=== PATIENT | female | born 1965 | race Caucasian/White ===

== ENCOUNTER → 2020-02-27 15:04 | Outpatient (CLI) | payer MEDICAID, SELFPAY ==
[2020-02-27 15:14] LABS: Basophils % 0.6 % (0.1-2.0); Eosinophils # 0.1 K/mm3 (0.0-0.4); Eosinophils % 3.7 % (0.1-12.0); Hematocrit 37.6 % (37.0-47.0); Hemoglobin 12.3 g/dL (12.2-16.2); Lymphocytes # 0.9 K/mm3 (0.7-4.5); Lymphocytes % 37.3 % (10-50); Mean Corpuscular HGB Conc 32.8 g/dL (31.8-35.4); Mean Corpuscular Hemoglobin 31.8 pg (27.0-31.2); Mean Corpuscular Volume 96.9 fl (81-99); Mean Platelet Volume 10.9 fl (7.4-10.4); Monocytes # 0.2 K/mm3 (0.1-1.0); Monocytes % 7.1 % (1.7-9.3); Neutrophils # 1.3 K/mm3 (1.8-7.8); Neutrophils % 51.3 % (37.0-80.0); Platelet Count 70 K/mm3 (142-424); Red Blood Count 3.88 M/mm3 (4.20-5.40); Red Cell Distribution Width 14.4 % (11.5-17.5); White Blood Count 2.5 K/mm3 (4.8-10.8)
[2020-02-27 15:16] LABS: Chloride 105 mmol/L (98-107); Sodium 142 mmol/L (136-145)
[2020-02-27 15:19] LABS: Alanine Aminotransferase 21 U/L (12-78); Alkaline Phosphatase 102 U/L (38-126); Aspartate Amino Transferase 38 U/L (14-36); Blood Urea Nitrogen 6 mg/dl (7-17); Carbon Dioxide 26 mmol/L (22.0-30.0); Estimated Glomerular Filt Rate 87 ml/min (>60); GFR (African American) 105 ML/MIN (>60)
[2020-02-27 15:20] LABS: Albumin Level 3.2 g/dl (3.5-5.0); Albumin/Globulin Ratio 0.9 (1.1-1.8); Calcium 9.4 mg/dl (8.4-10.2); Chol/HDL Ratio 4.9 (1-3.5); Cholesterol 133 mg/dl (140-200); Globulin 3.5 g/dL (1.3-3.2); Glucose 102 mg/dl (74-100); HDL Cholesterol 27 mg/dl (40-60); Total Protein,Serum 6.7 g/dl (6.3-8.2); Triglycerides 97 mg/dl (30-150); VLDL Cholesterol 19 mg/dL (0-40)
[2020-02-27 15:31] LABS: Direct LDL Cholesterol 79.52 mg/dL (100-129)
[2020-02-27 15:37] LABS: T4 (Thyroxine) 10.4 ug/dl (5.53-11.0)
[2020-02-27 15:48] LABS: Creatinine,Urine Random 197 mg/dL (Not Estab.)
[2020-02-27 15:52] LABS: Microalbumin/Creatinine Ratio 4.1
[2020-02-27 16:06] LABS: Hemoglobin A1C 5.1 % (4.0-6.0)
== END ==
PROVIDERS: Visit Provider Family Medicine
DX: E11.9 Type 2 diabetes mellitus without complications (principal); Z79.84 Long term (current) use of oral hypoglycemic drugs
CPT/HCPCS: 80053; 80061; 82043; 82570; 83036; 84436; 84443; 85025

== ENCOUNTER → 2020-04-26 14:30 | Outpatient (CLI) | payer MEDICAID, SELFPAY ==
[2020-04-26 14:38] LABS: Basophils % 0.5 % (0.1-2.0); Eosinophils # 0.1 K/mm3 (0.0-0.4); Hematocrit 39.1 % (37.0-47.0); Hemoglobin 12.2 g/dL (12.2-16.2); Lymphocytes % 33.8 % (10-50); Mean Corpuscular HGB Conc 31.2 g/dL (31.8-35.4); Mean Corpuscular Hemoglobin 30.8 pg (27.0-31.2); Mean Corpuscular Volume 98.6 fl (81-99); Mean Platelet Volume 10.4 fl (7.4-10.4); Monocytes # 0.3 K/mm3 (0.1-1.0); Monocytes % 8.9 % (1.7-9.3); Neutrophils # 1.6 K/mm3 (1.8-7.8); Neutrophils % 54.8 % (37.0-80.0); Platelet Count 87 K/mm3 (142-424); Red Blood Count 3.96 M/mm3 (4.20-5.40); Red Cell Distribution Width 14.2 % (11.5-17.5); White Blood Count 2.9 K/mm3 (4.8-10.8)
[2020-04-26 14:54] LABS: Chloride 104 mmol/L (98-107); Potassium 3.7 mmoL/L (3.5-5.1); Sodium 141 mmol/L (136-145)
[2020-04-26 14:57] LABS: Alanine Aminotransferase 20 U/L (12-78); Albumin Level 3.3 g/dl (3.5-5.0); Albumin/Globulin Ratio 0.8 (1.1-1.8); Alkaline Phosphatase 97 U/L (38-126); Anion Gap 16.7 mEq/L (5-15); Aspartate Amino Transferase 38 U/L (14-36); Bilirubin,Total 1.3 mg/dl (0.2-1.3); Blood Urea Nitrogen 8 mg/dl (7-17); Carbon Dioxide 24 mmol/L (22.0-30.0); Estimated Glomerular Filt Rate 74 ml/min (>60); GFR (African American) 90 ML/MIN (>60); Globulin 4.1 g/dL (1.3-3.2); Total Protein,Serum 7.4 g/dl (6.3-8.2)
[2020-04-26 14:58] LABS: Calcium 9.2 mg/dl (8.4-10.2); Glucose 69 mg/dl (74-100)
[2020-04-26 15:16] LABS: Hemoglobin A1C 4.8 % (4.0-6.0)
== END ==
PROVIDERS: Visit Provider Family Medicine
DX: E11.9 Type 2 diabetes mellitus without complications (principal); L08.9 Local infection of the skin and subcutaneous tissue, unspecified
CPT/HCPCS: 80053; 83036; 85025

== ENCOUNTER → 2020-05-27 11:15 | Outpatient (CLI) | payer MEDICAID, SELFPAY ==
--- NOTE | 2020-05-27 | XR_ITS ---
PROCEDURE: XR LUMBAR SPINE MIN 4V CLINICAL INDICATION: MONOCLONAL GAMMOPATHY Low back pain COMPARISON: No exams were available for comparison FINDINGS: Mild lumbar curvature convex left. There is normal alignment. Degenerative disc disease is present at L4-5 and L5-S1. There is generalized vascular calcification. Mild osteoarthritic changes present in the hips. Other findings:None. IMPRESSION: Degenerative disc disease L4-5 Dictated by: Roshan Lewis MD 05/27/2020 13:34 Roshan Lewis MD in [facility] 05/27/2020 13:34
--- NOTE | 2020-05-27 | XR_ITS ---
PROCEDURE: XR PELVIS 1-2V CLINICAL INDICATION: MONOCLONAL GAMMOPATHY Pain COMPARISON: No exams were available for comparison TECHNIQUE: XR Pelvis AP View FINDINGS: Study is limited technically due to patient's body habitus. No gross acute bony or joint abnormalities are evident. There is some decrease in the hip joint space superiorly on both sides which may be related to mild osteoarthritis. IMPRESSION: Limited exam. Slight decrease in the hip joint spaces suggesting mild osteoarthritis Dictated by: Roshan Lewis MD 05/27/2020 13:36 Roshan Lewis MD in [facility] 05/27/2020 13:36
[2020-05-27 12:47] LABS: Basophils % 0.7 % (0.1-2.0); Eosinophils # 0.1 K/mm3 (0.0-0.4); Eosinophils % 2.1 % (0.1-12.0); Hematocrit 41.4 % (37.0-47.0); Lymphocytes # 1.4 K/mm3 (0.7-4.5); Lymphocytes % 29.6 % (10-50); Mean Corpuscular HGB Conc 31.3 g/dL (31.8-35.4); Mean Corpuscular Hemoglobin 30.8 pg (27.0-31.2); Mean Corpuscular Volume 98.5 fl (81-99); Mean Platelet Volume 9.6 fl (7.4-10.4); Monocytes # 0.4 K/mm3 (0.1-1.0); Monocytes % 7.5 % (1.7-9.3); Neutrophils # 2.9 K/mm3 (1.8-7.8); Neutrophils % 60.3 % (37.0-80.0); Platelet Count 117 K/mm3 (142-424); Red Cell Distribution Width 13.9 % (11.5-17.5); White Blood Count 4.7 K/mm3 (4.8-10.8)
[2020-05-27 14:10] LABS: Chloride 106 mmol/L (98-107); Potassium 4.7 mmoL/L (3.5-5.1); Sodium 139 mmol/L (136-145)
[2020-05-27 14:13] LABS: Alanine Aminotransferase 26 U/L (12-78); Alkaline Phosphatase 111 U/L (38-126); Anion Gap 17.7 mEq/L (5-15); Aspartate Amino Transferase 44 U/L (14-36); Bilirubin,Total 1.2 mg/dl (0.2-1.3); Blood Urea Nitrogen 14 mg/dl (7-17); Calcium 9.5 mg/dl (8.4-10.2); Carbon Dioxide 20 mmol/L (22.0-30.0); Estimated Glomerular Filt Rate 52 ml/min (>60); GFR (African American) 62 ML/MIN (>60); Glucose 78 mg/dl (74-100); Iron 55 ug/dL (37-170)
[2020-05-27 14:14] LABS: Albumin Level 3.7 g/dl (3.5-5.0); Albumin/Globulin Ratio 0.8 (1.1-1.8); Globulin 4.8 g/dL (1.3-3.2); Total Protein,Serum 8.5 g/dl (6.3-8.2)
[2020-05-27 14:23] LABS: Total Iron Binding Capacity 289 ug/dL (265-497)
[2020-05-27 14:49] LABS: Ferritin 96.4 ng/ml (11.1-264)
[2020-05-29 21:41] LABS: Free Kappa Lt Chains 131.2 mg/L (3.3-19.4); Free Lambda Lt Chains 73.2 mg/L (5.7-26.3)
[2020-05-31 14:48] LABS: Immunoglobulin A, Qn 710 mg/dL (87-352); Immunoglobulin G, Qn 2429 mg/dL (586-1602)
[2020-05-31 14:59] LABS: Immunoglobulin M, Qn 142 mg/dL (26-217)
[2020-05-31 18:04] LABS: Alpha-1-Globulin 0.3 g/dL (0.0-0.4); Alpha-2-Globulin 0.8 g/dL (0.4-1.0); Gamma Globulin 2.5 g/dL (0.4-1.8); Protein, Total 7.7 g/dL (6.0-8.5)
== END ==
PROVIDERS: PCP Family Medicine; Visit Provider Internal Medicine Medical Oncology
DX: D47.2 Monoclonal gammopathy (principal); D69.6 Thrombocytopenia, unspecified; M54.5 Low back pain
CPT/HCPCS: 36415; 72110; 72170; 80053; 82728; 82784; 83540; 83550; 83883; 84155; 84165; 85025; 86334

== ENCOUNTER 2020-06-22 08:40 | Outpatient (CLI) | payer MEDICAID, SELFPAY ==
--- NOTE | 2020-06-22 08:40 | US_ITS ---
PROCEDURE: US LIVER CLINICAL INDICATION: cirrhosis COMPARISON: No exams were available for comparison FINDINGS: There is diffuse ascites. The liver is small and shrunken with irregular borders. Portal vein is 12 mm common bile duct is 3 mm. There is appropriate direction of blood flow within the portal vein. There is diffuse abdominal ascites. IMPRESSION: Small cirrhotic appearing liver with diffuse ascites Dictated by: Roshan Lewis MD 06/22/2020 21:57 Roshan Lewis MD in [facility] 06/22/2020 21:57
--- NOTE | 2020-06-22 08:40 | US_ITS ---
PROCEDURE: US PARACENTESIS CLINICAL INDICATION: Abdominal distension COMPARISON: No exams were available for comparison TECHNIQUE: Informed consent was obtain prior to procedure. After appropriate Time out, under aseptic conditions and local anesthesia with 1% buffered lidocaine using sonographic guidance a 6 Barbadian Aszv-V-Jyfcurno catheter was inserted into the largest pocket of fluid localized in the right lower quadrant. Approximately 56580 mL of serous fluid was drained. The patient tolerated the procedure well and left the radiology suite in stable condition. The patient went to infusion for albumin infusion following the paracentesis. FINDINGS: Diffuse ascites IMPRESSION: Successful sonographic guided paracentesis without complication. Dictated by: Roshan Lewis MD 06/22/2020 22:00 Roshan Lewis MD in [facility] 06/22/2020 22:00
[2020-06-22 11:38] VITALS: BMI 36.7
[2020-06-22 12:05] LABS: Creatinine Clearance Estimated 81 mL/min (50-200); Estimated Glomerular Filt Rate 47 ml/min (>60); GFR (African American) 56 ML/MIN (>60)
[2020-06-22 12:40] VITALS: BP 124/66; PULSE 90; RESP 18; O2SAT 95
[2020-06-22 14:25] VITALS: BP 132/76; PULSE 100; RESP 18
[2020-06-22 16:35] VITALS: BP 127/68; PULSE 93; RESP 18
== END 2020-06-22 16:35 | disposition home or self-care (01) ==
LOC: RAD 08:40 → INF 11:36
PROVIDERS: PCP Family Medicine; Visit Provider Family Medicine
DX: R18.8 Other ascites (principal); K74.60 Unspecified cirrhosis of liver
CPT/HCPCS: 49083; 76705; 82565; 96365; 96366; J2405; P9047

== ENCOUNTER → 2020-07-07 13:51 | Outpatient (CLI) | payer MEDICAID, SELFPAY ==
--- NOTE | 2020-07-07 13:51 | CT_ITS ---
PROCEDURE: CT ABDOMEN PELVIS WO CON CLINICAL INDICATION: ascites, liver mass COMPARISON: Paracentesis 06/22/2020 at which time 32522 mL of ascitic fluid was removed TECHNIQUE: Axial images obtained with sagittal and coronal reformats. All CT scans at the facility use one or more dose reduction, viz: automated exposure control, ma/kV adjustment per patient size (including targeted exams where dose is matched to indication, i.e. head), or iterative reconstruction technique. FINDINGS: Lower thorax: The lower lung francois are clear and there is no pleural fluid. Cardiac size is normal. ABDOMEN: Liver: Overall liver somewhat small mild nodularity of capsule Gallbladder: Post cholecystectomy Pancreas: No masses or peripancreatic fluid collections. Spleen: unremarkable Adrenals: unremarkable Kidneys/ureters: The kidneys are normal in size and no calculi and there is no obstructive. ABDOMEN & PELVIS: Stomach bowel: There is a small hiatal hernia. The stomach and duodenal sweep normal. The small bowel is normal in caliber and the loops of bowel are seen floating in the massive amount of abdominal ascites. There obviously has been marked reaccumulation of the ascitic fluid since the previous paracentesis. There is diffuse increased attenuation of the subcutaneous tissues of the abdominal wall consistent with generalized anasarca. Peritoneum: Massive abdominal ascites. No free air. Lymph nodes: No enlarged lymph nodes apparent. Vasculature: There is diffuse arthrosclerotic calcification of the abdominal aorta but there is no aneurysm. Bones: No acute fracture PELVIS: Reproductive: Post hysterectomy Bladder: The bladder is decompressed, there is no significant ascitic fluid in the lower pelvis or cul-de-sac Appendix: There are no findings to suggest appendicitis but the massive amount of ascitic fluid somewhat obscures adequate evaluation of the cecum and pericecal area. IMPRESSION: Massive amount of abdominal ascites with generalized anasarca of the abdominal wall, somewhat small and cirrhotic appearing liver, other findings as described Dictated by: Dr. Raman Huerta MD 07/07/2020 14:22 Dr. Raman Huerta MD in [facility] 07/07/2020 14:22
== END ==
PROVIDERS: PCP Family Medicine; Visit Provider Family Medicine
DX: R16.0 Hepatomegaly, not elsewhere classified (principal); R18.8 Other ascites
CPT/HCPCS: 74176

== ENCOUNTER 2020-07-14 08:58 | Outpatient (CLI) | payer MEDICAID, SELFPAY ==
[2020-07-14] VITALS (9 sets, daily range): BP systolic 105–143; BP diastolic 58–78; PULSE 78–98; RESP 18; O2SAT 94–99; BMI 35.2
--- NOTE | 2020-07-14 08:58 | US_ITS ---
PROCEDURE: US PARACENTESIS CLINICAL INDICATION: Ascites, abdominal distension COMPARISON: No exams were available for comparison TECHNIQUE: Informed consent was obtain prior to procedure. After appropriate Time out, under aseptic conditions and local anesthesia with 1% buffered lidocaine using sonographic guidance a 6 Chilean Sqch-F-Ptcgykcv catheter was inserted into the largest pocket of fluid localized in the right lower quadrant. 13,300 cc serous fluid was drained. The patient tolerated the procedure well and left the radiology suite in stable condition. FINDINGS: Diffuse ascites IMPRESSION: Successful sonographic guided paracentesis without complication. Dictated by: Roshan Lewis MD 07/15/2020 13:09 Roshan Lewis MD in [facility] 07/15/2020 13:09
[2020-07-14 10:11] LABS: Creatinine Clearance Estimated 64 mL/min (50-200); Estimated Glomerular Filt Rate 36 ml/min (>60); GFR (African American) 43 ML/MIN (>60)
== END 2020-07-14 16:35 | disposition home or self-care (01) ==
LOC: RAD 08:58 → INF 10:31
PROVIDERS: PCP Family Medicine; Visit Provider Family Medicine
DX: R18.8 Other ascites (principal)
CPT/HCPCS: 49083; 82565; 96365; 96366; 96375; J2405; P9047

== ENCOUNTER → 2020-07-22 14:12 | Outpatient (CLI) | payer MEDICAID, SELFPAY ==
[2020-07-22 14:19] LABS: Basophils % 0.6 % (0.1-2.0); Eosinophils # 0.1 K/mm3 (0.0-0.4); Eosinophils % 2.6 % (0.1-12.0); Hematocrit 38.7 % (37.0-47.0); Hemoglobin 12.1 g/dL (12.2-16.2); Lymphocytes # 1.6 K/mm3 (0.7-4.5); Lymphocytes % 32.2 % (10-50); Mean Corpuscular HGB Conc 31.2 g/dL (31.8-35.4); Mean Corpuscular Hemoglobin 30.9 pg (27.0-31.2); Mean Platelet Volume 10.2 fl (7.4-10.4); Monocytes # 0.5 K/mm3 (0.1-1.0); Monocytes % 9.9 % (1.7-9.3); Neutrophils # 2.7 K/mm3 (1.8-7.8); Neutrophils % 54.8 % (37.0-80.0); Platelet Count 125 K/mm3 (142-424); Red Blood Count 3.91 M/mm3 (4.20-5.40); Red Cell Distribution Width 14.5 % (11.5-17.5)
[2020-07-22 14:48] LABS: Chloride 109 mmol/L (98-107); Potassium 5.6 mmoL/L (3.5-5.1); Sodium 136 mmol/L (136-145)
[2020-07-22 14:51] LABS: Alanine Aminotransferase 23 U/L (12-78); Albumin Level 2.9 g/dl (3.5-5.0); Albumin/Globulin Ratio 0.7 (1.1-1.8); Alkaline Phosphatase 112 U/L (38-126); Anion Gap 11.6 mEq/L (5-15); Aspartate Amino Transferase 43 U/L (14-36); Bilirubin,Total 1.4 mg/dl (0.2-1.3); Blood Urea Nitrogen 28 mg/dl (7-17); Calcium 9.1 mg/dl (8.4-10.2); Carbon Dioxide 21 mmol/L (22.0-30.0); Estimated Glomerular Filt Rate 33 ml/min (>60); GFR (African American) 40 ML/MIN (>60); Globulin 4.4 g/dL (1.3-3.2); Glucose 84 mg/dl (74-100); HDL Cholesterol 24 mg/dl (40-60); Lipase 107 U/L (23-300); Total Protein,Serum 7.3 g/dl (6.3-8.2)
[2020-07-22 14:52] LABS: Chol/HDL Ratio 4.8 (1-3.5); Cholesterol 115 mg/dl (140-200); Triglycerides 105 mg/dl (30-150); VLDL Cholesterol 21 mg/dL (0-40)
[2020-07-22 15:03] LABS: Direct LDL Cholesterol 59.32 mg/dL (100-129)
[2020-07-22 15:21] LABS: Thyroid Stimulating Hormone 4.21 uIU/mL (0.465-4.68)
== END ==
PROVIDERS: PCP Family Medicine; Visit Provider Family Medicine
DX: K74.60 Unspecified cirrhosis of liver (principal); Z79.899 Other long term (current) drug therapy
CPT/HCPCS: 80053; 80061; 83690; 84443; 85025

== ENCOUNTER → 2020-08-06 17:36 | Outpatient (CLI) | payer MEDICAID, SELFPAY ==
[2020-08-06 18:09] LABS: Alanine Aminotransferase 24 U/L (12-78); Albumin Level 2.7 g/dl (3.5-5.0); Albumin/Globulin Ratio 0.6 (1.1-1.8); Alkaline Phosphatase 145 U/L (38-126); Anion Gap 12.5 mEq/L (5-15); Aspartate Amino Transferase 40 U/L (14-36); Bilirubin,Total 1.1 mg/dl (0.2-1.3); Blood Urea Nitrogen 24 mg/dl (7-17); Carbon Dioxide 21 mmol/L (22.0-30.0); Chloride 112 mmol/L (98-107); Estimated Glomerular Filt Rate 31 ml/min (>60); GFR (African American) 38 ML/MIN (>60); Globulin 4.4 g/dL (1.3-3.2); Glucose 104 mg/dl (74-100); Potassium 5.5 mmoL/L (3.5-5.1); Sodium 140 mmol/L (136-145); Total Protein,Serum 7.1 g/dl (6.3-8.2)
[2020-08-06 18:10] LABS: Basophils % 0.3 % (0.1-2.0); Eosinophils # 0.1 K/mm3 (0.0-0.4); Eosinophils % 1.5 % (0.1-12.0); Hematocrit 33.9 % (37.0-47.0); Hemoglobin 10.8 g/dL (12.2-16.2); Lymphocytes # 1.3 K/mm3 (0.7-4.5); Lymphocytes % 28.2 % (10-50); Mean Corpuscular HGB Conc 31.9 g/dL (31.8-35.4); Mean Corpuscular Hemoglobin 31.5 pg (27.0-31.2); Mean Corpuscular Volume 98.8 fl (81-99); Mean Platelet Volume 10.1 fl (7.4-10.4); Monocytes # 0.4 K/mm3 (0.1-1.0); Monocytes % 9.4 % (1.7-9.3); Neutrophils # 2.7 K/mm3 (1.8-7.8); Neutrophils % 60.6 % (37.0-80.0); Platelet Count 120 K/mm3 (142-424); Red Blood Count 3.43 M/mm3 (4.20-5.40); Red Cell Distribution Width 14.8 % (11.5-17.5); White Blood Count 4.5 K/mm3 (4.8-10.8)
== END ==
PROVIDERS: Visit Provider Family Medicine
DX: R18.8 Other ascites (principal)
CPT/HCPCS: 80053; 85025

== ENCOUNTER 2020-08-13 13:09 | Observation (INO) | payer MEDICAID, SELFPAY ==
[2020-08-13] VITALS (7 sets, daily range): BP systolic 95–123; BP diastolic 54–77; PULSE 78–109; RESP 17–20; TEMP 36.9; O2SAT 95–99; BMI 34.3
--- NOTE | 2020-08-13 14:12 | HMH.EDGENADL ---
ED Disposition Clinical Impression: Ascites Qualifiers: Ascites type: other type Qualified Code(s): R18.8 - Other ascites Cirrhosis Qualifiers: Hepatic cirrhosis type: other cirrhosis Qualified Code(s): K74.69 - Other cirrhosis of liver Disposition: Admitted As Inpatient Condition on Discharge: Fair Referrals: Orlin Collado MD [Primary Care Provider] - - Critical Care Critical Care Time: No Attestation: On 08/13/20, the high probability of a clinically significant, sudden or life threatening deterioration of the following system(s) required my full and direct attention, intervention and personal management. The time I documented below is in addition to time spent performing reported procedures but includes the following listed in this critical care notation. Medical Decision Making - Medical Records Medical records reviewed: Yes: I reviewed the patient's medical records. - Jovany Inquiry Pt receiving controlled substance: No Vital Signs: 08/13/20 13:10 08/13/20 13:40 Temperature 98.4 F Temperature Source Oral Pulse Rate [Left Radial] 102 H 102 H Respiratory Rate 18 18 Blood Pressure [Right Arm] 114/77 123/65 Blood Pressure Mean [Right Arm] 89 84 Blood Pressure Source [Right Arm] Automatic Cuff Automatic Cuff Blood Pressure Position [Right Arm] Supine Supine 02 Sat by Pulse Oximetry 98 98 Oxygen Delivery Method Room Air Room Air - Lab Data Lab Results 08/13/20 13:45: WBC 4.5 L, RBC 3.18 L, Hgb 9.8 L, Hct 31.6 L, MCV 99.4 H, MCH 30.8, MCHC 31.0 L, RDW 14.3, Plt Count 126 L, MPV 9.5, Neut % (Auto) 57.1, Lymph % (Auto) 31.5, Cooke % (Auto) 9.4 H, Eos % (Auto) 1.5, Baso % (Auto) 0.5, Neut # (Auto) 2.6, Lymph # (Auto) 1.4, [place]oke # (Auto) 0.4, Eos # (Auto) 0.1, Baso # (Auto) 0.0 08/13/20 13:45: Sodium 140, Potassium 5.5 H, Chloride 115 H, Carbon Dioxide 18 L, Anion Gap 12.5, BUN 27 H, Creatinine 1.90 H, Estimated Creat Clear 47, Estimated GFR 27 L, Est GFR ( Amer) 33 L, Glucose 100, Calcium 9.3, Total Bilirubin 0.7, AST 44 H, ALT 28, Alkaline Phosphatase 178 H, Total Protein 8.0, Albumin 3.0 L, Globulin 5.0 H, Albumin/Globulin Ratio 0.6 L, Lipase 114 08/13/20 13:45: PT 12.8 H, INR 1.26 H, APTT 26.6 08/13/20 13:45: Ammonia 75 H 08/13/20 13:45: Lactate 2.9 H Result diagrams: 08/13/20 13:45 08/13/20 13:45 Orders (Tests/Meds): ED MEDICATIONS Generic Name Dose Route Start Last Admin Trade Name Freq PRN Reason Stop Dose Admin Albumin Human 25 gm 08/13/20 17:30 Albumin 25% (12.5 Gm) Soln 50ml Bottle IV 08/21/20 17:31 ONCE SASKIA Discontinued Medications Generic Name Dose Route Start Last Admin Trade Name Freq PRN Reason Stop Dose Admin Bacitracin 1 each 08/13/20 16:35 08/13/20 16:37 Bacitracin Oint 0.9gm Udp TP 08/13/20 16:36 1 each ONCE ONE Administration Morphine Sulfate 4 mg 08/13/20 15:27 08/13/20 15:44 Morphine 4mg/Ml Syringe IV 08/13/20 15:28 4 mg ONCE ONE Administration Promethazine HCl 25 mg 08/13/20 14:44 08/13/20 15:44 Promethazine Hcl 25mg/Ml 1ml Vial IV 08/13/20 14:45 25 mg ONCE ONE Administration Sodium Bicarbonate 1.92 meq 08/13/20 16:35 08/13/20 16:37 Sodium Bicarbonate (Neut) 4% 5ml Vial IV 08/13/20 16:36 1.92 meq ONCE ONE Administration Sodium Chloride 25 ml 08/13/20 14:44 08/13/20 15:44 Sodium Chloride 0.9% 25ml Bag IV 08/13/20 14:45 25 ml ONCE ONE Administration ORDERS Category Date Time Status Blood Culture Stat Micro 08/13/20 13:45 Received US Paracentesis Stat Ultrasound 08/13/20 14:27 Taken - Reevaluation(s) Time: 17:51 Reevaluation #1: On reevaluation, the patient is feeling much better. The patient did receive paracentesis today. A total of 14 L were removed from the abdomen. Patient will require prolonged albumin infusion. Patient requires admission for further evaluation and treatment. Medical Decision Narrative: 55-year-old female presented to the emergency depar
[2020-08-13 14:14] LABS: Alanine Aminotransferase 28 U/L (12-78); Albumin/Globulin Ratio 0.6 (1.1-1.8); Alkaline Phosphatase 178 U/L (38-126); Anion Gap 12.5 mEq/L (5-15); Aspartate Amino Transferase 44 U/L (14-36); Bilirubin,Total 0.7 mg/dl (0.2-1.3); Blood Urea Nitrogen 27 mg/dl (7-17); Calcium 9.3 mg/dl (8.4-10.2); Carbon Dioxide 18 mmol/L (22.0-30.0); Chloride 115 mmol/L (98-107); Creatinine Clearance Estimated 47 mL/min (50-200); Estimated Glomerular Filt Rate 27 ml/min (>60); GFR (African American) 33 ML/MIN (>60); Glucose 100 mg/dl (74-100); Lipase 114 U/L (23-300); Potassium 5.5 mmoL/L (3.5-5.1); Sodium 140 mmol/L (136-145)
[2020-08-13 14:15] LABS: Basophils % 0.5 % (0.1-2.0); Eosinophils # 0.1 K/mm3 (0.0-0.4); Eosinophils % 1.5 % (0.1-12.0); Hematocrit 31.6 % (37.0-47.0); Hemoglobin 9.8 g/dL (12.2-16.2); Lymphocytes # 1.4 K/mm3 (0.7-4.5); Lymphocytes % 31.5 % (10-50); Mean Corpuscular Hemoglobin 30.8 pg (27.0-31.2); Mean Corpuscular Volume 99.4 fl (81-99); Mean Platelet Volume 9.5 fl (7.4-10.4); Monocytes # 0.4 K/mm3 (0.1-1.0); Monocytes % 9.4 % (1.7-9.3); Neutrophils # 2.6 K/mm3 (1.8-7.8); Neutrophils % 57.1 % (37.0-80.0); Platelet Count 126 K/mm3 (142-424); Red Blood Count 3.18 M/mm3 (4.20-5.40); Red Cell Distribution Width 14.3 % (11.5-17.5); White Blood Count 4.5 K/mm3 (4.8-10.8)
[2020-08-13 14:19] LABS: Ammonia 75 umol/L (9-30)
[2020-08-13 14:20] LABS: Activated Partial Thrombo Time 26.6 seconds (23.6-34.0); INR 1.26 (0.9-1.1); Prothrombin Time 12.8 seconds (9.4-11.8)
--- NOTE | 2020-08-13 14:27 | US_ITS ---
PROCEDURE: US PARACENTESIS CLINICAL INDICATION: SWELLING Diffuse abdominal ascites with abdominal distension pain and shortness of breath COMPARISON: No exams were available for comparison TECHNIQUE: Informed consent was obtain prior to procedure. After appropriate Time out, under aseptic conditions and local anesthesia with 1% buffered lidocaine using sonographic guidance a 6 Bermudian Inns-Z-Scfxfqbv catheter was inserted into the largest pocket of fluid localized in the right lower quadrant. Approximately 30128 mL of serous us fluid was drained. The patient tolerated the procedure well and left the radiology suite in stable condition. FINDINGS: Diffuse 4 quadrant ascites IMPRESSION: Successful sonographic guided paracentesis without complication. Dictated by: Roshan Lewis MD 08/16/2020 09:37 Roshan Lewis MD in [place] 08/16/2020 09:37
[2020-08-13 14:39] LABS: Lactic Acid 2.9 mmol/L (0.7-2.1)
--- NOTE | 2020-08-13 14:50 | PC.NURSE ---
PT GONE FOR PROCEDURE
--- NOTE | 2020-08-13 15:44 | PC.NURSE ---
MEDS TOOK TO RADIOLOGY FOR PT
--- NOTE | 2020-08-13 17:35 | PC.NURSE ---
Verified albumin order with Vasyl in pharmacy.
--- NOTE | 2020-08-13 17:48 | PC.NURSE ---
speaking with Dr Ruvalcaba.
[2020-08-13 18:19] LABS: Reflex Lactic Add Lactic Reflex
--- NOTE | 2020-08-13 19:15 | PC.NURSE ---
pt arrived to floor via stretcher to floor from the ED
[2020-08-13 19:25] LABS: Lactic Acid Follow Up (RFLX 1) 3.2 mmol/L (0.7-2.1)
--- NOTE | 2020-08-13 19:51 | HMH.HPDC ---
General - General Admission date:: 08/13/20 Discharge date: 08/13/20 *Admission Date: 08/13/20 *Chief complaint: ascites and cirrhosis *History of present illness: Patient is a 55-year-old white female, followed by me in the office, presented to the hospital today for abdominal paracentesis. This is her third visit to this hospital for paracentesis, large volumes were previously taken off, 14 L was taken off today. Patient feels much improved, she needs an albumin infusion following the paracentesis, wishes to go home after the albumin infusion is completed. Patient carries a diagnosis of cirrhosis, imaging via ultrasound showed a small cirrhotic liver. CT imaging previously has shown significant ascites and anasarca. The ascites component has been progressive over the last few months, and she has an appointment to see gastroenterology at . Patient also carries a diagnosis of monoclonal gammopathy of unknown significance MGUS. She has a longstanding history of pancytopenia. She was followed by an oncologist in [facility], recently seen locally by Dr. Gilmore. Patient has been getting progressively weaker at home, has sustained a few falls. She is increasingly frail, there is disuse atrophy of skeletal muscle. Patient has chronic back pain, longstanding anxiety. Imaging of the lumbar spine did not demonstrate any suggestion of multiple myeloma. Evolution of the monoclonal gammopathy to myeloma has been a clinical concern. Patient states she feels much improved following the paracentesis. She has been drinking sips of fluids, not much of an appetite. She would like to go home following albumin infusion. [facility] History Medical History: Reports:: Anxiety, Cancer, Depression, Diabetes Mellitus Type 2, Gastroesophageal Reflux Disease(GERD), Hyperlipidemia, Hypertension *Have you ever received a pneumonia vaccine?: No *Have you received a flu vaccine this season?: No Other Medical History: Reports: Chemotherapy, Liver Disease, Thyroid Disease Other Surgeries: Yes: Cancer Surgery, Colonoscopy, Thyroidectomy - *Social History Smoking Status: Current every day smoker Tobacco Type: cigarettes # Packs/Day (cigarettes): 1 Alcohol Intake: never Substance Use Type: denies use *Occupational Status:: disabled Housing: house Household Members: spouse, family, children *Travel in the last 8 weeks: None - Psychiatric History Expresses thoughts of harming self/others: None Pschychiatric History:: Reports:: Anxiety, Depression Family Hx:: Non-contributory Review of Systems - Constitutional Reports anorexia, Reports lack of energy, Reports malaise, Reports weakness - Eyes Denies change in vision - ENT Denies abnormal hearing, Denies bleeding gums, Denies nosebleed - *Cardiovascular Reports leg pain with activity, Reports generalized swelling, Reports leg swelling, Reports foot swelling, Denies chest pain, Denies chest pain at rest, Denies chest pain with activity - *Respiratory Denies chest congestion - *Gastrointestinal Reports abdominal pain, Reports feeling full early, Denies coffee ground vomit, Denies difficulty swallowing, Denies black, tarry stools - *Genitourinary Denies difficulty urinating - *Musculoskeletal Reports abnormal walking, Reports muscle weakness, Reports body aches, Reports stiffness - Integumentary/Breasts Denies yellowing of the skin - *Neurologic Reports weakness, Denies confusion, Denies localized weakness, Denies headache(s) - Psychiatric Reports lack of enjoyment, Reports anxiety - Endocrine Reports cold intolerance - Hematologic/Lymphatic Reports easy bruising - Allergic/Immunologic Denies wheezing Exam Vital signs and Labs for Last 24 Hours: Temp Pulse Resp BP Pulse Ox 98.4 F 95 H 20 97/56 L 98 08/13/20 19:13 08/13/20 19:13 08/13/20 19:13 08/13/20 19:13 08/13/20 18:21 Laboratory Results - last 24 hr 08/13/20 13:45: WBC 4.5 L, RBC 3.18 L, Hgb 9.8 L, Hct
[2020-08-13 21:01] LABS: Reflex Lactic (2 hrs) Add Lactic Reflex
[2020-08-13 22:03] LABS: Lactic Acid Follow up (RFLX 2) 4.4 mmol/L (0.7-2.1)
--- NOTE | 2020-08-13 22:13 | PC.NURSE ---
Critical Lactic reported to MD Ruvalcaba. OK to still DC when albumen is finished infusing.
== END 2020-08-14 00:10 | disposition home or self-care (01) ==
LOC: ER 17:53 → 2ND 19:21
PROVIDERS: Admitting Provider Family Medicine; Emergency Provider Emergency Medicine; PCP Emergency Medicine; Visit Provider Family Medicine
DX: K74.60 Unspecified cirrhosis of liver (principal); E11.9 Type 2 diabetes mellitus without complications; I10 Essential (primary) hypertension; D47.2 Monoclonal gammopathy; R29.6 Repeated falls; Z88.0 Allergy status to penicillin; Z88.5 Allergy status to narcotic agent; Z79.4 Long term (current) use of insulin; Z79.51 Long term (current) use of inhaled steroids; Z72.0 Tobacco use; Z88.2 Allergy status to sulfonamides; Z88.8 Allergy status to other drugs, medicaments and biological substances; Z79.899 Other long term (current) drug therapy; R18.8 Other ascites
CPT/HCPCS: 36415; 49083; 80053; 82140; 83605; 83690; 85025; 85610; 85730; 87040; 96365; 96366; 96375; 99285; G0378; P9047; U0003

== ENCOUNTER → 2020-08-19 13:29 | Outpatient (CLI) | payer MEDICAID, SELFPAY ==
[2020-08-19 13:52] LABS: Chloride 116 mmol/L (98-107)
[2020-08-19 13:53] LABS: Sodium 140 mmol/L (136-145)
[2020-08-19 13:55] LABS: Alanine Aminotransferase 35 U/L (12-78); Alkaline Phosphatase 129 U/L (38-126); Anion Gap 15.8 mEq/L (5-15); Aspartate Amino Transferase 47 U/L (14-36); Bilirubin,Total 1.1 mg/dl (0.2-1.3); Blood Urea Nitrogen 36 mg/dl (7-17); Carbon Dioxide 14 mmol/L (22.0-30.0); Estimated Glomerular Filt Rate 19 ml/min (>60); GFR (African American) 23 ML/MIN (>60); Potassium 5.8 mmoL/L (3.5-5.1)
[2020-08-19 13:56] LABS: Albumin Level 3.1 g/dl (3.5-5.0); Albumin/Globulin Ratio 0.7 (1.1-1.8); Calcium 9.2 mg/dl (8.4-10.2); Globulin 4.5 g/dL (1.3-3.2); Glucose 89 mg/dl (74-100); Total Protein,Serum 7.6 g/dl (6.3-8.2)
[2020-08-19 14:01] LABS: Hemoglobin A1C 4.9 % (4.0-6.0)
== END ==
PROVIDERS: Visit Provider Family Medicine
DX: D69.6 Thrombocytopenia, unspecified (principal); K74.60 Unspecified cirrhosis of liver; E11.9 Type 2 diabetes mellitus without complications; Z79.84 Long term (current) use of oral hypoglycemic drugs
CPT/HCPCS: 80053; 82043; 83036

== ENCOUNTER → 2020-09-08 10:14 | Outpatient (CLI) | payer MEDICAID, SELFPAY ==
--- NOTE | 2020-09-08 11:26 | US_ITS ---
PROCEDURE: US PARACENTESIS CLINICAL INDICATION: Distended abdomen with diffuse ascites COMPARISON: No exams were available for comparison TECHNIQUE: Informed consent was obtain prior to procedure. After appropriate Time out, under aseptic conditions and local anesthesia with 1% buffered lidocaine using sonographic guidance a 6 Lao Zrld-I-Rcrgrhuz catheter was inserted into the largest pocket of fluid localized in the right lower quadrant. Approximately 17 L of serous fluid was drained. The patient tolerated the procedure well and left the radiology suite in stable condition. FINDINGS: Diffuse ascites IMPRESSION: Successful sonographic guided paracentesis without complication. Dictated by: Roshan Lewis MD 09/08/2020 17:04 Roshan Lewis MD in [facility] 09/08/2020 17:04
[2020-09-08 11:34] VITALS: BMI 36.7
[2020-09-08 12:13] LABS: Creatinine Clearance Estimated 57 mL/min (50-200); Estimated Glomerular Filt Rate 31 ml/min (>60); GFR (African American) 38 ML/MIN (>60)
[2020-09-08 14:10] VITALS: BP 121/68; PULSE 109; RESP 20; TEMP 36.3; O2SAT 98
[2020-09-08 15:55] VITALS: BP 113/61; PULSE 105; RESP 18
[2020-09-08 16:30] VITALS: BP 136/78; PULSE 111; RESP 18
[2020-09-08 17:00] VITALS: BP 108/65; PULSE 112; RESP 20
--- NOTE | 2020-09-08 17:05 | PC.NURSE ---
1705-pt to room 200; gave bedside report to dayan brown on 2nd floor to finish infusion
[2020-09-08 21:28] VITALS: BP 112/53; RESP 16; TEMP 37.2; O2SAT 93
== END ==
PROVIDERS: PCP Family Medicine; Visit Provider Family Medicine
DX: K74.60 Unspecified cirrhosis of liver (principal); R18.8 Other ascites
CPT/HCPCS: 49083; 82565; 96365; 96366; J2405

== ENCOUNTER 2020-09-22 10:12 | Outpatient (CLI) | payer MEDICAID, SELFPAY ==
[2020-09-22 10:01] VITALS: BMI 36.7
--- NOTE | 2020-09-22 10:12 | US_ITS ---
PROCEDURE: US PARACENTESIS CLINICAL INDICATION: Abdominal distension with ascites COMPARISON: No exams were available for comparison TECHNIQUE: Informed consent was obtain prior to procedure. After appropriate Time out, under aseptic conditions and local anesthesia with 1% buffered lidocaine using sonographic guidance a 6 Amharic Qcfr-A-Mpiyjipu catheter was inserted into the largest pocket of fluid localized in the right lower quadrant. Approximately 80691 mL of serous fluid was drained. The patient tolerated the procedure well and left the radiology suite in stable condition. FINDINGS: Diffuse ascites IMPRESSION: Successful sonographic guided paracentesis without complication. Dictated by: Roshan Lewis MD 09/22/2020 17:31 Roshan Lewis MD in [place] 09/22/2020 17:31
[2020-09-22 10:26] LABS: Creatinine Clearance Estimated 57 mL/min (50-200); Estimated Glomerular Filt Rate 31 ml/min (>60); GFR (African American) 38 ML/MIN (>60)
[2020-09-22 12:40] VITALS: BP 115/64; PULSE 88; RESP 18; O2SAT 98
[2020-09-22 17:20] VITALS: BP 107/57; PULSE 105; RESP 18
== END 2020-09-22 17:20 | disposition home or self-care (01) ==
LOC: RAD 10:12
PROVIDERS: PCP Family Medicine; Visit Provider Family Medicine
DX: R18.8 Other ascites (principal); K74.60 Unspecified cirrhosis of liver; R14.0 Abdominal distension (gaseous)
CPT/HCPCS: 49083; 82565; 96365; 96366; J2405; P9047

== ENCOUNTER 2020-10-01 08:56 | Outpatient (CLI) | payer MEDICAID, SELFPAY ==
[2020-10-01 08:37] VITALS: BMI 27.4
--- NOTE | 2020-10-01 08:56 | US_ITS ---
PROCEDURE: US PARACENTESIS CLINICAL INDICATION: Ascites with abdominal discomfort COMPARISON: No exams were available for comparison TECHNIQUE: Informed consent was obtain prior to procedure. After appropriate Time out, under aseptic conditions and local anesthesia with 1% buffered lidocaine using sonographic guidance a 6 Kyrgyz Smzu-E-Ughntjrx catheter was inserted into the largest pocket of fluid localized in the right lower quadrant. Approximately 9400 mL serous fluid was drained. The patient tolerated the procedure well and left the radiology suite in stable condition. FINDINGS: Diffuse ascites IMPRESSION: Successful sonographic guided paracentesis without complication. Dictated by: Roshan Lewis MD 10/01/2020 15:32 Roshan Lewis MD in [place] 10/01/2020 15:32
[2020-10-01 09:04] LABS: Basophils % 0.4 % (0.1-2.0); Eosinophils # 0.1 K/mm3 (0.0-0.4); Eosinophils % 1.2 % (0.1-12.0); Hematocrit 31.8 % (37.0-47.0); Hemoglobin 10.1 g/dL (12.2-16.2); Lymphocytes # 1.3 K/mm3 (0.7-4.5); Lymphocytes % 19.9 % (10-50); Mean Corpuscular HGB Conc 31.9 g/dL (31.8-35.4); Mean Corpuscular Hemoglobin 30.8 pg (27.0-31.2); Mean Corpuscular Volume 96.4 fl (81-99); Mean Platelet Volume 9.1 fl (7.4-10.4); Monocytes # 0.5 K/mm3 (0.1-1.0); Monocytes % 7.3 % (1.7-9.3); Neutrophils # 4.6 K/mm3 (1.8-7.8); Neutrophils % 71.2 % (37.0-80.0); Platelet Count 106 K/mm3 (142-424); Red Cell Distribution Width 15.2 % (11.5-17.5); White Blood Count 6.5 K/mm3 (4.8-10.8)
[2020-10-01 09:13] LABS: Alanine Aminotransferase 35 U/L (12-78); Albumin Level 3.2 g/dl (3.5-5.0); Albumin/Globulin Ratio 0.7 (1.1-1.8); Alkaline Phosphatase 184 U/L (38-126); Anion Gap 15.1 mEq/L (5-15); Aspartate Amino Transferase 50 U/L (14-36); Bilirubin,Total 2.4 mg/dl (0.2-1.3); Blood Urea Nitrogen 24 mg/dl (7-17); Calcium 8.8 mg/dl (8.4-10.2); Carbon Dioxide 16 mmol/L (22.0-30.0); Chloride 108 mmol/L (98-107); Creatinine Clearance Estimated 40 mL/min (50-200); Estimated Glomerular Filt Rate 29 ml/min (>60); GFR (African American) 35 ML/MIN (>60); Globulin 4.5 g/dL (1.3-3.2); Glucose 99 mg/dl (74-100); Potassium 4.1 mmoL/L (3.5-5.1); Sodium 135 mmol/L (136-145); Total Protein,Serum 7.7 g/dl (6.3-8.2)
[2020-10-01 11:30] VITALS: BP 91/44; PULSE 80; RESP 18; O2SAT 100
[2020-10-01 15:10] VITALS: BP 94/64; PULSE 75; RESP 18
[2020-10-04 15:34] LABS: Immunoglobulin G, Qn 2757 mg/dL (586-1602)
[2020-10-04 17:04] LABS: Albumin 3.2 g/dL (2.9-4.4); Alpha-1-Globulin 0.2 g/dL (0.0-0.4); Alpha-2-Globulin 0.5 g/dL (0.4-1.0); Gamma Globulin 2.8 g/dL (0.4-1.8); Protein, Total 7.4 g/dL (6.0-8.5)
[2020-10-05 02:15] LABS: Immunoglobulin A, Qn 1051 mg/dL (87-352); Immunoglobulin M, Qn 165 mg/dL (26-217)
== END 2020-10-01 15:10 | disposition home or self-care (01) ==
LOC: RAD 08:56 → INF 10:14
PROVIDERS: PCP Family Medicine; Visit Provider Family Medicine
DX: R18.8 Other ascites (principal)
CPT/HCPCS: 49083; 80053; 82784; 83883; 84155; 84165; 85025; 86334; 96365; 96366; J2405; P9047

== ENCOUNTER → 2020-10-02 12:47 | Outpatient (CLI) | payer MEDICAID, SELFPAY ==
[2020-10-02 13:04] LABS: Basophils % 0.2 % (0.1-2.0); Eosinophils # 0.1 K/mm3 (0.0-0.4); Eosinophils % 1.4 % (0.1-12.0); Hematocrit 26.4 % (37.0-47.0); Hemoglobin 8.5 g/dL (12.2-16.2); Lymphocytes # 1.1 K/mm3 (0.7-4.5); Lymphocytes % 18.6 % (10-50); Mean Corpuscular HGB Conc 32.1 g/dL (31.8-35.4); Mean Corpuscular Hemoglobin 31.1 pg (27.0-31.2); Mean Corpuscular Volume 96.9 fl (81-99); Mean Platelet Volume 8.6 fl (7.4-10.4); Monocytes # 0.4 K/mm3 (0.1-1.0); Monocytes % 7.4 % (1.7-9.3); Neutrophils # 4.3 K/mm3 (1.8-7.8); Neutrophils % 72.3 % (37.0-80.0); Platelet Count 83 K/mm3 (142-424); Red Blood Count 2.73 M/mm3 (4.20-5.40); Red Cell Distribution Width 14.9 % (11.5-17.5); White Blood Count 5.9 K/mm3 (4.8-10.8)
[2020-10-02 13:17] LABS: INR 1.52 (0.9-1.1); Prothrombin Time 17.4 seconds (10.1-12.5)
[2020-10-02 14:49] LABS: Chloride 110 mmol/L (98-107); Potassium 4.2 mmoL/L (3.5-5.1); Sodium 137 mmol/L (136-145)
[2020-10-02 14:52] LABS: Blood Urea Nitrogen 22 mg/dl (7-17); Estimated Glomerular Filt Rate 33 ml/min (>60); GFR (African American) 40 ML/MIN (>60)
[2020-10-02 14:53] LABS: Anion Gap 15.2 mEq/L (5-15); Calcium 8.4 mg/dl (8.4-10.2); Carbon Dioxide 16 mmol/L (22.0-30.0); Glucose 95 mg/dl (74-100)
[2020-10-02 15:09] LABS: Coronavirus 19 IgG Antibody Negative (Negative); Coronavirus 19 IgM Antibody Negative (Negative)
== END ==
PROVIDERS: Visit Provider Surgery
DX: R10.9 Unspecified abdominal pain (principal); R18.8 Other ascites
CPT/HCPCS: 36415; 80048; 85025; 85610; 86328

== ENCOUNTER 2020-10-05 10:52 | Day surgery (SDC) | payer MEDICAID, SELFPAY ==
[2020-10-04 14:14] VITALS: BMI 26.2
[2020-10-05] VITALS (11 sets, daily range): BP systolic 90–114; BP diastolic 50–74; PULSE 90–104; RESP 12–18; TEMP 6.1–43; O2SAT 97–100
[2020-10-05 11:27] LABS: POC Glucose,Bedside 67 (70-110)
--- NOTE | 2020-10-05 11:35 | P.PN_ITS ---
[facility] Anesthesia Checklist - Patient Identification Patient Identification: Arm Band - Structural Data Admitted From: Home Planned Operative Procedure/s: POrt-a-cath insertion Consent for Planned Operative Procedure(s) Verified: Yes - NPO Status Verified Time NPO: 00:00 - Additional verifications Anesthesia Reactions: No Hx Blood Transfusions: No Blood Transfusion Reaction: No - Airway Assessment C-Spine Mobility Assessed: Yes TMJ Mobility Assessed: Yes Dentition: Edentulous - Neurological Assessment Level of Consciousness: Awake Hx Seizures: No Numbness or tingling in extremities: No - Anesthesia Plan Anesthesia Risk discussed: Yes Anesthesia Plan: Verified ASA Class: III Anesthesia Type: General [facility] History I have reviewed the patient's past medical history: Yes Medical History: Reports:: Anxiety, Cancer (breast, skin, colon), Congestive Heart Failure, Depression, Diabetes Mellitus Type 2, Gastroesophageal Reflux Disease(GERD), Hyperlipidemia, Hypertension Denies:: Diabetes Mellitus Type 1, Internal Pacemaker, MRSA, Seizures *Have you ever received a pneumonia vaccine?: Yes *Have you received a flu vaccine this season?: Yes Other Medical History: Reports: Chemotherapy, Liver Disease, Thyroid Disease. Denies: Blood Transfusion Reaction Anesthesia experience/problems:: None Laterality Cases: Bilateral: Mastectomy Other Surgeries: Yes: Cancer Surgery, Colonoscopy, Thyroidectomy. No: Pacemaker Amputation: No - *Social History Last grade of school completed: High school graduate Smoking Status: Current every day smoker Tobacco Type: cigarettes # Packs/Day (cigarettes): 1 Alcohol Intake: never Substance Use Type: denies use *Occupational Status:: retired Housing: house Household Members: spouse *Travel in the last 8 weeks: None - Psychiatric History Pschychiatric History:: Reports:: Anxiety, Depression Family Hx:: Non-contributory
--- NOTE | 2020-10-05 12:50 | HMH.OPNOTE ---
Date of procedure: 10/05/20 Pre-op Diagnosis:: Need for semipermanent intravenous access Post-op Diagnosis:: Same Procedure performed:: Placement of tunneled single-lumen 8 Haitian open-ended catheter in left subclavian vein with implantable reservoir port (PowerPort) Surgeon:: Drake De La Garza MD SCRAPER LOADER OPERATOR:: Isra Frank Anesthesia: LMA Estimated blood loss (mL): 15 Clinical Note:: Patient is a 55-year-old female with liver cirrhosis and profound ascites, cytopenias referred by Dr. Eliseo Ruvalcaba for port placement. She has history of monoclonal gammopathy of uncertain significance and is followed by Dr. Gilmore. She states that there has been some discussion regarding potential chemotherapy. She states that in 2013 she was diagnosed with cirrhosis with ascites. Patient has required large-volume paracentesis about every 2 weeks recently. Review of the medical record reveals thrombocytopenia, mild elevation of transaminases and alkaline phosphatase, mild elevation of INR, diminished hemoglobin and hematocrit. She is apparently scheduled to undergo consultation for possible liver transplantation. Due to the extremely poor venous access and need for multiple medical procedures and blood draws she was referred for port placement. Operative findings:: Unremarkable anatomy Operative note:: Patient was taken to the operating room. She was given preoperative intravenous antibiotics. The operating room she was placed in a supine position. General anesthesia was induced via LMA. Neck and upper chest was prepped and draped in the standard surgical fashion bilaterally. She was positioned in Trendelenburg position. Local anesthetic was infiltrated inferior to the left clavicle. 18-gauge needle was inserted manipulating the needle posterior to the clavicle. Left subclavian vein was cannulated with good return of blood. Guidewire was inserted. Fluoroscopy was used to confirm appropriate positioning of the guidewire. Small incision was made at the insertion site. Subcutaneous tissues were dilated with the dilator with breakaway sheath. Guidewire and dilator were removed. Single-lumen open-ended catheter was then inserted through the breakaway sheath which was then broken away and removed. Fluoroscopy was used to position the tip of the catheter near the atriocaval junction. Skin was marked with a skin marker for planned subcutaneous tunneling and subcutaneous pocket. Local anesthetic was infiltrated. Subcutaneous pocket was created with electrocautery after incision was made. Catheter was tunneled subcutaneously. Once again fluoroscopy was used to confirm appropriate position of the tip of the catheter near the atriocaval junction. Catheter was cut to the appropriate length. It was secured to the single-lumen reservoir port. Icard port was secured into the subcutaneous pocket with several 2-0 Vicryl sutures. Port aspirated and flushed. It was then flushed with heparinized saline. Subdermal tissues were closed with a running 2-0 Vicryl. Skin incisions were closed with 4-0 Monocryl in a subcuticular fashion. Clean dry sterile dressing was applied. Condition: stable Disposition: PACU Complications:: None immediately apparent
--- NOTE | 2020-10-05 12:58 | HMH.ANESI ---
[facility] Anesthesia Record Part I Intake, IV Amount: 600 Estimated blood loss (mL): 0 Urine output (mL): 0 Blood Pressure: 112/74 SaO2: 97 Pulse Rate: 96 Respiratory Rate: 12 Temperature: 97.1 F Patient is:: Awake, Stable Stable to PACU at:: 12:55
--- NOTE | 2020-10-05 13:12 | XR_ITS ---
PROCEDURE: XR CHEST PORTABLE CLINICAL HISTORY: port a cath placement COMPARISON: No exams were available for comparison FINDINGS: Left subclavian Port-A-Cath with its tip overlying the superior vena cava is noted. No evidence of pneumothorax. Subsegmental atelectasis versus infiltrate noted in the left lower zone. Raise left hemidiaphragm is noted. Possible trace left effusion. No other lobar consolidation, or suspicious nodule. Cardiac size and central pulmonary vasculature within normal limits. Visualized osseous structures are unremarkable. IMPRESSION: Subsegmental atelectasis versus infiltrate in the left lower zone. No evidence of pneumothorax. Dictated by: Dalila Dorsey 10/05/2020 13:30 Dalila Dorsey in [facility] 10/05/2020 13:30
[2020-10-05 13:16] LABS: POC Glucose,Bedside 76 (70-110)
--- NOTE | 2020-10-05 13:52 | XR_ITS ---
PROCEDURE: XR CHEST AP CLINICAL HISTORY: PORT A CATH PLACEMENT IN OR COMPARISON: CR XR CHEST PORTABLE from 10/05/2020 FINDINGS: Fluoroscopic image of the upper thorax demonstrates left subclavian Port-A-Cath placement with its tip overlying the SVC. IMPRESSION: Left subclavian Port-A-Cath. Dictated by: Dalila Dorsey 10/05/2020 15:03 Dalila Dorsey in [place] 10/05/2020 15:03
--- NOTE | 2020-10-06 13:49 | P.PN_ITS ---
[facility] Anesthesia Record Part II Discharge Time: 13:25 Destination: [facility] PACU nurse assessment reviewed?: Yes Patient Condition:: Good Anesthesia Complications:: None Swallowing reflex intact?: Yes Cyanosis?: No Blood Pressure: 110/66 Pulse Rate: 91 Temperature: 97.6 F Mental Status: Alert & Oriented Pain level:: 0 Nausea and/or vomitting:: None Intake, IV Amount: 1,000
[2020-10-06 13:50] VITALS: BP 110/66; PULSE 91; TEMP 36.4
== END 2020-10-05 14:08 | disposition home or self-care (01) ==
LOC: OR 10:55
PROVIDERS: PCP Family Medicine; Visit Provider Surgery
PROC: (CPT 36561; principal; 2020-10-05 12:15)
DX: K74.60 Unspecified cirrhosis of liver (principal); I11.0 Hypertensive heart disease with heart failure; I50.9 Heart failure, unspecified; E11.9 Type 2 diabetes mellitus without complications; K21.9 Gastro-esophageal reflux disease without esophagitis; E78.5 Hyperlipidemia, unspecified; F41.9 Anxiety disorder, unspecified; F32.9 Major depressive disorder, single episode, unspecified; E07.9 Disorder of thyroid, unspecified; Z85.3 Personal history of malignant neoplasm of breast; Z85.828 Personal history of other malignant neoplasm of skin; Z85.038 Personal history of other malignant neoplasm of large intestine
CPT/HCPCS: 36561; 71045; 76000; 82962; 96374; C1788; J1642; J2405

== ENCOUNTER 2020-10-13 09:45 | Outpatient (CLI) | payer MEDICAID, SELFPAY ==
[2020-10-13 09:25] VITALS: BMI 27.6
--- NOTE | 2020-10-13 09:45 | US_ITS ---
PROCEDURE: US PARACENTESIS CLINICAL INDICATION: Abdominal distension, ascites COMPARISON: No exams were available for comparison TECHNIQUE: Informed consent was obtain prior to procedure. After appropriate Time out, under aseptic conditions and local anesthesia with 1% buffered lidocaine using sonographic guidance a 6 [place] Tyvp-Y-Ehdfwzfk catheter was inserted into the largest pocket of fluid localized in the right lower quadrant. Approximately 79268 mL of serous fluid was drained. The patient tolerated the procedure well and left the radiology suite in stable condition. FINDINGS: Diffuse ascites IMPRESSION: Successful sonographic guided paracentesis without complication. Dictated by: Roshan Lewis MD 10/13/2020 17:55 Roshan Lewis MD in [place] 10/13/2020 17:55
[2020-10-13 10:12] LABS: Creatinine Clearance Estimated 37 mL/min (50-200); Estimated Glomerular Filt Rate 26 ml/min (>60); GFR (African American) 31 ML/MIN (>60)
[2020-10-13 12:05] VITALS: BP 105/68; PULSE 99; RESP 18; TEMP 36.2; O2SAT 97
[2020-10-13 16:05] VITALS: BP 92/47; PULSE 99; RESP 20
== END 2020-10-13 16:05 | disposition home or self-care (01) ==
PROVIDERS: PCP Family Medicine; Visit Provider Family Medicine
DX: R18.8 Other ascites (principal)
CPT/HCPCS: 49083; 82565; 96365; 96366; J1642; J2405; P9047

== ENCOUNTER 2020-10-27 10:07 | Outpatient (CLI) | payer MEDICAID, SELFPAY ==
[2020-10-27 09:50] VITALS: BMI 36.7
--- NOTE | 2020-10-27 10:09 | US_ITS ---
PROCEDURE: US PARACENTESIS CLINICAL INDICATION: ASCITES COMPARISON: No exams were available for comparison TECHNIQUE: Informed consent was obtain prior to procedure. After appropriate Time out, under aseptic conditions and local anesthesia with 1% buffered lidocaine using sonographic guidance a 6 [place] Eszs-V-Ugphfjid catheter was inserted into the largest pocket of fluid localized in the right lower quadrant. Approximately 6000 mL of serous fluid was drained. The patient tolerated the procedure well and left the radiology suite in stable condition. FINDINGS: Diffuse ascites IMPRESSION: Successful sonographic guided paracentesis without complication. Dictated by: Roshan Lewis MD 10/27/2020 14:41 Roshan Lewis MD in [place] 10/27/2020 14:41
[2020-10-27 10:26] LABS: Creatinine Clearance Estimated 31 mL/min (50-200); Estimated Glomerular Filt Rate 16 ml/min (>60); GFR (African American) 19 ML/MIN (>60)
--- NOTE | 2020-10-27 11:35 | PC.NURSE ---
1135-report called to dayan jameson in ed for pt transfer; pt to room 4
== END 2020-10-27 11:40 | disposition still patient (30) ==
LOC: RAD 10:07
PROVIDERS: PCP Family Medicine; Visit Provider Family Medicine
DX: R18.8 Other ascites (principal)
CPT/HCPCS: 49083; 82565; J2405; P9047

== ENCOUNTER 2020-10-27 11:39 | Inpatient (IN) | payer MEDICAID, SELFPAY ==
[2020-10-27] VITALS (15 sets, daily range): BP systolic 88–124; BP diastolic 42–69; PULSE 72–92; RESP 16–22; TEMP 36.6–37.4; O2SAT 95–100; BMI 23.1; BMI 22.8
--- NOTE | 2020-10-27 11:48 | HMH.EDGENADL ---
ED Disposition Clinical Impression: Acute kidney injury Liver cirrhosis Qualifiers: Hepatic cirrhosis type: unspecified hepatic cirrhosis Ascites presence: unspecified Qualified Code(s): K74.60 - Unspecified cirrhosis of liver Disposition: Admitted As Inpatient Condition on Discharge: Good - Critical Care Critical Care Time: No Attestation: On 10/27/20, the high probability of a clinically significant, sudden or life threatening deterioration of the following system(s) required my full and direct attention, intervention and personal management. The time I documented below is in addition to time spent performing reported procedures but includes the following listed in this critical care notation. Medical Decision Making - Medical Records Medical records reviewed: Yes: I reviewed the patient's medical records. - Jovany Inquiry Pt receiving controlled substance: No Vital Signs: 10/27/20 11:39 10/27/20 12:00 10/27/20 12:30 Temperature 98.1 F Temperature Source Oral Pulse Rate 80 85 Pulse Rate [Radial] 89 Respiratory Rate 22 Blood Pressure 107/67 L 123/69 Blood Pressure [Right Arm] 124/46 L Blood Pressure Mean 82 Blood Pressure Mean [Right Arm] 72 Blood Pressure Position [Right Arm] Sitting 02 Sat by Pulse Oximetry 100 100 100 Oxygen Delivery Method Room Air - Lab Data Lab Results 10/27/20 11:53: WBC 10.2, RBC 3.02 L, Hgb 9.4 L, Hct 29.3 L, MCV 97.1, MCH 31.2, MCHC 32.2, RDW 15.8, Plt Count 75 L, MPV 9.3, Neut % (Auto) 82.6 H, Lymph % (Auto) 11.8, [place] % (Auto) 5.0, Eos % (Auto) 0.4, Baso % (Auto) 0.1, Neut # (Auto) 8.4 H, Lymph # (Auto) 1.2, [place] # (Auto) 0.5, Eos # (Auto) 0.0, Baso # (Auto) 0.0 10/27/20 11:53: PT 18.8 H, INR 1.65 H, APTT 39.7 H D 10/27/20 11:53: Sodium 134 L, Potassium 4.1, Chloride 108 H, Carbon Dioxide 17 L, Anion Gap 13.1, BUN 50 H, Creatinine 3.00 H, Estimated Creat Clear 20, Estimated GFR 16 L*, Est GFR ( Amer) 20 L, Glucose 99, Calcium 8.9, Total Bilirubin 2.0 H, Direct Bilirubin 0.8 H, Conjugated Bilirubin 0.0, Indirect Bilirubin 1.2 H, Unconjugated Bilirubin 1.2 H, AST 37 H, ALT 26, Alkaline Phosphatase 142 H, Total Protein 6.7, Albumin 2.7 L Result diagrams: 10/27/20 11:53 10/27/20 11:53 Orders (Tests/Meds): ED MEDICATIONS Generic Name Dose Route Start Last Admin Trade Name Freq PRN Reason Stop Dose Admin Albumin Human 200 mls @ 100 mls/hr 10/27/20 12:30 10/27/20 12:30 Albumin 25% (12.5gm) Soln 50ml Bottle IV 10/27/20 14:29 100 mls/hr ONCE ONE Administration Lactated Ringer's 1,000 mls @ 100 mls/hr 10/27/20 13:30 Lactated Ringer's 1000 Ml Bag IV 11/26/20 13:29 .Q10H [facility] ORDERS Category Date Time Status Full Resp Panel w/COVID ([facility]) Routine Lab 10/27/20 13:20 Received Osmolality Stat Lab 10/27/20 11:53 Received Urinalysis and Microscopic Stat Lab 10/27/20 12:01 Ordered Medical Decision Narrative: Patient is a 55-year-old female presenting with abnormal lab draw. Reportedly, she had a creatinine of greater than 3 at her lab draw this morning during her paracentesis. She also endorses some generalized malaise which very much could be contributed to her renal insufficiency. Labs will be repeated here in the emergency department with urine studies. Creatinine 3 on lab work. Baseline between 1.5 and 1.8 on review. There does appear to be prerenal component and again this could be progressive hepatorenal syndrome. Plasma expansion will be initiated with crystalloid fluids at 100 cc/h. Diabetic diet ordered. Reached out to on-call hospitalist, Dr. Collado, to discuss admission. After careful discussion we agreed patient should be admitted for further treatment and evaluation. Shared plan with patient and family at bedside. All parties are in agreement. Patient continues to be hemodynamically stable and will be admitted to the hospital. Assessment: Acute kidney injury Liver cirrhosis Type 2 diabetes Anx
[2020-10-27 12:17] LABS: Basophils % 0.1 % (0.1-2.0); Eosinophils % 0.4 % (0.1-12.0); Hematocrit 29.3 % (37.0-47.0); Hemoglobin 9.4 g/dL (12.2-16.2); Lymphocytes # 1.2 K/mm3 (0.7-4.5); Lymphocytes % 11.8 % (10-50); Mean Corpuscular HGB Conc 32.2 g/dL (31.8-35.4); Mean Corpuscular Hemoglobin 31.2 pg (27.0-31.2); Mean Corpuscular Volume 97.1 fl (81-99); Mean Platelet Volume 9.3 fl (7.4-10.4); Monocytes # 0.5 K/mm3 (0.1-1.0); Neutrophils # 8.4 K/mm3 (1.8-7.8); Neutrophils % 82.6 % (37.0-80.0); Platelet Count 75 K/mm3 (142-424); Red Blood Count 3.02 M/mm3 (4.20-5.40); Red Cell Distribution Width 15.8 % (11.5-17.5); White Blood Count 10.2 K/mm3 (4.8-10.8)
[2020-10-27 12:18] LABS: Chloride 108 mmol/L (98-107); Potassium 4.1 mmoL/L (3.5-5.1); Sodium 134 mmol/L (136-145)
[2020-10-27 12:21] LABS: Alanine Aminotransferase 26 U/L (12-78); Albumin Level 2.7 g/dl (3.5-5.0); Alkaline Phosphatase 142 U/L (38-126); Anion Gap 13.1 mEq/L (5-15); Aspartate Amino Transferase 37 U/L (14-36); Bilirubin,Direct 0.8 mg/dl (0.0-0.4); Bilirubin,Indirect 1.2 mg/dL (0.0-0.9); Bilirubin,Unconjugated 1.2 mg/dL (0.0-1.1); Blood Urea Nitrogen 50 mg/dl (7-17); Calcium 8.9 mg/dl (8.4-10.2); Carbon Dioxide 17 mmol/L (22.0-30.0); Creatinine Clearance Estimated 20 mL/min (50-200); Estimated Glomerular Filt Rate 16 ml/min (>60); GFR (African American) 20 ML/MIN (>60); Glucose 99 mg/dl (74-100); Total Protein,Serum 6.7 g/dl (6.3-8.2)
[2020-10-27 12:33] LABS: INR 1.65 (0.9-1.1); Prothrombin Time 18.8 seconds (10.1-12.5)
--- NOTE | 2020-10-27 12:34 | PC.NURSE ---
Notification from lab PTT 39.7
[2020-10-27 12:35] LABS: Activated Partial Thrombo Time 39.7 seconds (22.8-30.6)
--- NOTE | 2020-10-27 12:49 | PC.NURSE ---
Doughnut Machine Operator Helper advised she paged Neus and had no answer. I advised
[2020-10-27 13:01] LABS: Microscopic, Urine URINE MICROSCOPIC (MICROSCOPIC)
--- NOTE | 2020-10-27 13:04 | PC.NURSE ---
Lab advised the UA is not able to be performed at this time because the urine specimen has stool in it. RN caring for pt notified.
--- NOTE | 2020-10-27 13:16 | PC.NURSE ---
Dr Bateman speaking with Dr Collado at this time
--- NOTE | 2020-10-27 13:34 | PC.NURSE ---
care management called x 2 with no answer
[2020-10-27 13:37] LABS: Adenovirus,PCR Not Detected (NotDetected); Bordetella Pertussis Not Detected (NotDetected); Chlamydophila Pneumoniae, PCR Not Detected (NotDetected); Coronavirus 19, PCR Not Detected (NotDetected); Coronavirus 229E Not Detected (NotDetected); Coronavirus NL63 Not Detected (NotDetected); Coronavirus OC43 Not Detected (NotDetected); Coronovirus HKU1,PCR Not Detected (NotDetected); Human Metapneumovirus Not Detected (NotDetected); Influenza A, PCR Not Detected (NotDetected); Influenza AH1, 2009 Not Detected (NotDetected); Influenza AH1, PCR Not Detected (NotDetected); Influenza AH3,PCR Not Detected (NotDetected); Influenza B, PCR Not Detected (NotDetected); Mycoplasma Pneumoniae, PCR Not Detected (NotDetected); Parainfluenza 1, PCR Not Detected (NotDetected); Parainfluenza 2, PCR Not Detected (NotDetected); Parainfluenza 3, PCR Not Detected (NotDetected); Parainfluenza 4, PCR Not Detected (NotDetected); Respiratory Syncytial Virus Not Detected (NotDetected); Rhinovirus/Enterovirus Not Detected (NotDetected)
--- NOTE | 2020-10-27 14:11 | HMH.PHAVTE ---
[facility] Pharmacy VTE Monitoring - Patient Demographics Admission date: 10/27/20 Report Date: 10/27/20 Time: 14:11 Allergies/Adverse Reactions: Patient Allergies haloperidol [From Haldol] Allergy (Severe, Verified 10/14/20 08:54) Shortness of Breath Penicillins Allergy (Severe, Verified 10/14/20 08:54) Hives fentanyl Allergy (Verified 10/14/20 08:54) vomiting cortisone Adverse Reaction (Severe, Verified 10/14/20 08:54) Shortness of Breath Sulfa (Sulfonamide Antibiotics) Adverse Reaction (Unknown, Verified 10/14/20 08:54) Steroids Allergy (Unknown, Uncoded 10/14/20 08:54) Depression meds Adverse Reaction (Unknown, Uncoded 10/14/20 08:54) Height: 1.63 m Weight: 61.235 kg Patient Problems: Current Active Problems Acute kidney injury (Acute) Cirrhosis (Chronic) - VTE Risk Labs: VTE Related Lab Results Hgb 9.4 g/dL (12.2-16.2) L 10/27/20 11:53 Hct 29.3 % (37.0-47.0) L 10/27/20 11:53 Plt Count 75 K/mm3 (142-424) L 10/27/20 11:53 PT 18.8 seconds (10.1-12.5) H 10/27/20 11:53 INR 1.65 (0.9-1.1) H 10/27/20 11:53 APTT 39.7 seconds (22.8-30.6) H D 10/27/20 11:53 BUN 50 mg/dl (7-17) H 10/27/20 11:53 Creatinine 3.00 mg/dl (0.52-1.04) H 10/27/20 11:53 Estimated Creat Clear 20 mL/min (50-200) 10/27/20 11:53 - Prophylaxis VTE Prophylaxis Ordered?: Yes Types of VTE Prophylaxis: TEDS Knee High Location of Applied Device: Bilateral Lower Extremeties
--- NOTE | 2020-10-27 14:21 | HMH.PHAINT ---
MEDICATION RECONCILIATION COMPLETED USING EXTERNAL FILL HISTORY AND PHYSICIAN OFFICE NOTE
--- NOTE | 2020-10-27 14:30 | PC.NURSE ---
pt and family updated on plan of care
--- NOTE | 2020-10-27 15:30 | PC.NURSE ---
pt resting family at bedside, diet tray given. pt and family updated on plan of care
[2020-10-27 15:46] LABS: Appearance,Urine CLEAR (Clear); Bilirubin,Urine Negative (Negative); Blood, Urine Negative (Negative); Color,Urine YELLOW (Yellow); Glucose,Urine (UA) Negative (Negative); Ketones,Urine Negative (Negative); Leukocyte Esterase,Urine Negative (Negative); Nitrate,Urine Negative (Negative); Protein,Urine Negative (Negative)
[2020-10-27 16:16] LABS: Bacteria,Urine 1+ /lpf
--- NOTE | 2020-10-27 16:43 | PC.NURSE ---
report called to floor
--- NOTE | 2020-10-27 20:00 | PC.NURSE ---
Student nurse, Brianda Croft is performing care under my supervision.
--- NOTE | 2020-10-27 20:30 | HMH.HP ---
*Admission Date: 10/27/20 *Chief complaint: weakness *History of present illness: this pt was seen in the ed after having paracentesis and noted to have elvated creatine -donnellnt 55-year-old female with history of liver cirrhosis, diabetes, skin cancer presenting with abnormal labs. Patient was at her routine paracentesis this morning where she had multiple liters of ascitic fluid drained from her peritoneum. Lab draw there demonstrated creatinine greater than 3 which apparently is new for this patient. She was redirected to the emergency department. She states she is had some generalized malaise over the past several days without specific vomiting, diarrhea/constipation, abdominal pain, fever/chills, neurologic deficits, headache, chest pain, shortness of breath. phyllis is a 55-year-old female presenting with abnormal lab draw. Reportedly, she had a creatinine of greater than 3 at her lab draw this morning during her paracentesis. She also endorses some generalized malaise which very much could be contributed to her renal insufficiency. Labs will be repeated here in the emergency department with urine studies. Creatinine 3 on lab work. Baseline between 1.5 and 1.8 on review. There does appear to be prerenal component and again this could be progressive hepatorenal syndrome. Plasma expansion will be initiated with crystalloid fluids at 100 cc/h. Diabetic diet ordered. Reached out to on-call hospitalist, Dr. Collado, to discuss admission. After careful discussion we agreed patient should be admitted for further treatment and evaluation. Shared plan with patient and family at bedside. All parties are in agreement. Patient continues to be hemodynamically stable and will be admitted to the hospital. pt admitted for eval and treatment [facility] History I have reviewed the patient's past medical history: Yes Medical History: Reports:: Anxiety, Cancer, Congestive Heart Failure, Depression, Diabetes Mellitus Type 2, Gastroesophageal Reflux Disease(GERD), Hyperlipidemia, Hypertension Denies:: Diabetes Mellitus Type 1, Internal Pacemaker, MRSA, Seizures *Have you ever received a pneumonia vaccine?: Yes *Have you received a flu vaccine this season?: Yes Other Medical History: Reports: Anemia, Arthritis, Chemotherapy, Liver Disease, Thyroid Disease. Denies: Blood Transfusion Reaction Laterality Cases: Bilateral: Mastectomy, Tonsillectomy Other Surgeries: Yes: Cancer Surgery (skin), Cholecystectomy, Colonoscopy, Colostomy, Hysterectomy-Total, Thyroidectomy. No: Pacemaker Amputation: No - *Social History Last grade of school completed: High school graduate Smoking Status: Current every day smoker Tobacco Type: cigarettes # Packs/Day (cigarettes): 1 Alcohol Intake: never Substance Use Type: denies use *Occupational Status:: disabled Housing: house Household Members: spouse *Travel in the last 8 weeks: None - Psychiatric History Pschychiatric History:: Reports:: Anxiety, Depression Family Hx:: Cancer, Diabetes, Hypertension, Thyroid Disorder Review of Systems - Review of Systems Review of systems:: pertinent systems reviewed and negative unless documented below - Constitutional Reports weakness, Denies fever(s) - Eyes Denies change in vision - ENT Denies sore throat - *Cardiovascular Denies chest pain at rest - *Respiratory Denies cough - *Gastrointestinal Reports abdominal pain, Reports nausea, Denies black, tarry stools, Denies vomiting - *Genitourinary Denies blood in urine - *Musculoskeletal Denies joint pain - Integumentary/Breasts Denies rash - *Neurologic Reports weakness, Denies abnormal speech, Denies localized weakness, Denies tingling/numbness/burning sensations, Denies seizure-like activity - Psychiatric Reports confusion Meds Home Medications Medication Instructions Recorded Confirmed Type esomeprazole magnesium 20 mg 20 mg PO DAILY cap 06/29/20 10/27/20 History capsule,delayed release famotidine
--- NOTE | 2020-10-27 20:32 | XR_ITS ---
PROCEDURE: XR CHEST 2V CLINICAL HISTORY: sob Shortness of breath COMPARISON: CR XR CHEST PORTABLE from 10/05/2020 CR XR CHEST AP from 10/05/2020 FINDINGS: The cardiomediastinal silhouette and pulmonary vascularity are within normal limits. The lungs are clear without infiltrates, suspicious nodules, or pleural effusions. Left subclavian MediPort catheter is present with tip in the region the SVC. IMPRESSION: No acute findings. Dictated by: Roshan Lewis MD 10/28/2020 05:47 Roshan Lewis MD in [place] 10/28/2020 05:47
--- NOTE | 2020-10-27 20:34 | CT_ITS ---
PROCEDURE: CT ABDOMEN PELVIS WO CON CLINICAL INDICATION: abd pain Abdominal pain and nausea, cirrhosis, s/p paracentesis. COMPARISON: CT CT ABDOMEN PELVIS WO CON from 07/07/2020 TECHNIQUE: Axial images obtained with sagittal and coronal reformats. All CT scans at the facility use one or more dose reduction, viz: automated exposure control, ma/kV adjustment per patient size (including targeted exams where dose is matched to indication, i.e. head), or iterative reconstruction technique. FINDINGS: LOWER THORAX: Patchy density is present in the left lung base and in the right infrahilar region medially. No effusions. ABDOMEN & PELVIS: There is moderate amount generalized ascites which is decreased in volume compared to the previous exam.. There are innumerable tiny low density micro nodules involving the entire liver. There has been a prior cholecystectomy. Mild splenomegaly. The adrenal glands have an unremarkable appearance. Upper abdominal varices are present. The pancreas has an unremarkable appearance. Low-density changes are present within an enlarged superior mesenteric vein and portal vein suspicious for thrombosis. This has developed since the previous exam. There is diffuse haziness of the mesenteric fat. No renal or ureteral calculi. No hydronephrosis. No intestinal obstruction or free air. There is a moderate amount of feces within the colon. An anastomosis is present at the rectosigmoid region. Rectal fecal impaction suspected with the rectum measuring 6.5 cm in transverse dimension. There is mild diffuse thickening of the cecum and ascending colon. No evidence of small-bowel obstruction. No acute bony findings. IMPRESSION: 1. Interval development of numerous tiny hypodense micro nodules of the liver. Differential diagnosis would include micro abscesses, fungal infection, or metastatic disease. 2. Cirrhosis with findings of portal hypertension with moderate volume of ascites significantly decreased compared to the previous exam. 3. 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 4. Fecal impaction with moderate amount of retained colonic feces. 5. Thickened ascending colon and cecum nonspecific but may be seen with hepatic colopathy 6. Patchy areas of infiltrate in the left lung base and right middle lobe inferiorly Dictated by: Roshan Lewis MD 10/28/2020 06:10 Roshan Lewis MD in [place] 10/28/2020 06:10
--- NOTE | 2020-10-27 21:08 | PC.NURSE ---
patient went down with Rad.
--- NOTE | 2020-10-27 21:23 | PC.NURSE ---
patient back from [facility].
[2020-10-27 22:01] LABS: Basophils % 0.1 % (0.1-2.0); Eosinophils # 0.1 K/mm3 (0.0-0.4); Eosinophils % 0.6 % (0.1-12.0); Hematocrit 28.6 % (37.0-47.0); Hemoglobin 9.2 g/dL (12.2-16.2); Lymphocytes # 1.1 K/mm3 (0.7-4.5); Lymphocytes % 12.7 % (10-50); Mean Corpuscular HGB Conc 32.1 g/dL (31.8-35.4); Mean Corpuscular Hemoglobin 31.2 pg (27.0-31.2); Mean Corpuscular Volume 97.4 fl (81-99); Monocytes # 0.5 K/mm3 (0.1-1.0); Monocytes % 5.7 % (1.7-9.3); Platelet Count 65 K/mm3 (142-424); Red Blood Count 2.94 M/mm3 (4.20-5.40); Red Cell Distribution Width 15.8 % (11.5-17.5); White Blood Count 8.6 K/mm3 (4.8-10.8)
[2020-10-27 22:11] LABS: Blood Urea Nitrogen 48 mg/dl (7-17); Calcium 8.9 mg/dl (8.4-10.2); Carbon Dioxide 19 mmol/L (22.0-30.0); Chloride 109 mmol/L (98-107); Creatinine Clearance Estimated 21 mL/min (50-200); Estimated Glomerular Filt Rate 17 ml/min (>60); GFR (African American) 21 ML/MIN (>60); Glucose 89 mg/dl (74-100); Sodium 136 mmol/L (136-145)
[2020-10-27 22:30] LABS: T4 (Thyroxine) 3.8 ug/dl (5.53-11.0)
[2020-10-27 22:44] LABS: Ammonia 79 umol/L (9-30); Thyroid Stimulating Hormone 3.11 uIU/mL (0.465-4.68)
--- NOTE | 2020-10-28 03:17 | PC.NURSE ---
Pt is sleeping at this time. C/O chronic back pain and abdominal discomfort. Pt requested home medication for pain, anxiety and Iron. MD notified. New orders received. Restart home medication Oxycodone 5 mg po Q6 prn. alprazolam 1 mg po BID and iron 325 mg po TID. DSG to (R) abdomen is C/D/I. Lungs CTA. BS active. Ascites noted. BP has been low x1 this shift. Has been tachycardic x1. No other concerns. Will continue to monitor.
[2020-10-28 03:44] VITALS: BP 92/59; PULSE 91; RESP 15; TEMP 36.7; O2SAT 100
[2020-10-28 05:03] VITALS: BMI 23.6
[2020-10-28 06:19] LABS: Chloride 110 mmol/L (98-107); Sodium 136 mmol/L (136-145)
[2020-10-28 06:22] LABS: Alanine Aminotransferase 17 U/L (12-78); Albumin Level 2.5 g/dl (3.5-5.0); Albumin/Globulin Ratio 0.8 (1.1-1.8); Alkaline Phosphatase 95 U/L (38-126); Aspartate Amino Transferase 27 U/L (14-36); Bilirubin,Total 1.8 mg/dl (0.2-1.3); Blood Urea Nitrogen 45 mg/dl (7-17); Calcium 8.6 mg/dl (8.4-10.2); Carbon Dioxide 19 mmol/L (22.0-30.0); Creatinine Clearance Estimated 23 mL/min (50-200); Estimated Glomerular Filt Rate 18 ml/min (>60); GFR (African American) 22 ML/MIN (>60); Globulin 3.2 g/dL (1.3-3.2); Glucose 84 mg/dl (74-100); Total Protein,Serum 5.7 g/dl (6.3-8.2)
[2020-10-28 06:23] LABS: Ammonia 89 umol/L (9-30)
[2020-10-28 06:24] LABS: Basophils % 0.2 % (0.1-2.0); Eosinophils # 0.1 K/mm3 (0.0-0.4); Eosinophils % 0.7 % (0.1-12.0); Hematocrit 26.5 % (37.0-47.0); Hemoglobin 8.5 g/dL (12.2-16.2); Lymphocytes # 0.9 K/mm3 (0.7-4.5); Lymphocytes % 13.2 % (10-50); Mean Corpuscular HGB Conc 31.9 g/dL (31.8-35.4); Mean Corpuscular Hemoglobin 30.9 pg (27.0-31.2); Mean Corpuscular Volume 97.1 fl (81-99); Mean Platelet Volume 9.2 fl (7.4-10.4); Monocytes # 0.5 K/mm3 (0.1-1.0); Monocytes % 6.8 % (1.7-9.3); Neutrophils # 5.3 K/mm3 (1.8-7.8); Neutrophils % 79.1 % (37.0-80.0); Platelet Count 55 K/mm3 (142-424); Red Blood Count 2.73 M/mm3 (4.20-5.40); Red Cell Distribution Width 15.9 % (11.5-17.5); White Blood Count 6.7 K/mm3 (4.8-10.8)
[2020-10-28 06:56] LABS: POC Glucose,Bedside 80 (70-110)
[2020-10-28 07:31] VITALS: BP 115/54; PULSE 101; RESP 18; TEMP 36.7; O2SAT 98
[2020-10-28 07:45] VITALS: PULSE 101; RESP 18; O2SAT 98
[2020-10-28 16:00] VITALS: BP 112/67; PULSE 112; RESP 20; TEMP 36.8; O2SAT 100
--- NOTE | 2020-10-28 16:51 | PC.NURSE ---
Pt has been pleasant and cooperative this shift. A&O X4. Pt has complained of pain in her abdomen and lower extremities X2 thus far and has received Oxycodone per MAR with favorable results. Pt is on room air with sats. >90%. Lungs CTA. 1+ pitting edema noted to BLE. Abdomen is large, round, firm, and tender. RT abdominal wall paracentesis dressing is C/D/I. Pt ambulates independently and uses the toilet to void clear, yellow urine without issue. No BM this shift. Implanted port to the LT chest wall is patent and infusing LR @ 100 ML/HR. VSS. Call light within reach. Will continue to monitor.
--- NOTE | 2020-10-28 18:52 | HMH.ACPN2 ---
Internal Medicine - PN: Subj *Date: 10/28/20 *Time: 18:54 Interval history: looks chronically ill poor appetite 6 liters taken off w/last paracentesis Exam Vital signs and Labs for Last 24 Hours: Temp Pulse Resp BP Pulse Ox 98.3 F 112 H 20 112/67 100 10/28/20 16:00 10/28/20 16:00 10/28/20 16:00 10/28/20 16:00 10/28/20 16:00 Laboratory Results - last 24 hr 10/27/20 21:35: WBC 8.6, RBC 2.94 L, Hgb 9.2 L, Hct 28.6 L, MCV 97.4, MCH 31.2, MCHC 32.1, RDW 15.8, Plt Count 65 L, MPV 9.0, Neut % (Auto) 81.0 H, Lymph % (Auto) 12.7, [place] % (Auto) 5.7, Eos % (Auto) 0.6, Baso % (Auto) 0.1, Neut # (Auto) 7.0, Lymph # (Auto) 1.1, [place] # (Auto) 0.5, Eos # (Auto) 0.1, Baso # (Auto) 0.0 10/27/20 21:35: Sodium 136, Potassium 4.0, Chloride 109 H, Carbon Dioxide 19 L, Anion Gap 12.0, BUN 48 H, Creatinine 2.80 H, Estimated Creat Clear 21, Estimated GFR 17 L*, Est GFR ( Amer) 21 L, Glucose 89, Calcium 8.9, TSH 3.11, Thyroxine (T4) 3.8 L 10/27/20 21:35: Ammonia 79 H 10/28/20 05:52: POC Glucose 80 10/28/20 06:00: WBC 6.7, RBC 2.73 L, Hgb 8.5 L, Hct 26.5 L, MCV 97.1, MCH 30.9, MCHC 31.9, RDW 15.9, Plt Count 55 L, MPV 9.2, Neut % (Auto) 79.1, Lymph % (Auto) 13.2, [place] % (Auto) 6.8, Eos % (Auto) 0.7, Baso % (Auto) 0.2, Neut # (Auto) 5.3, Lymph # (Auto) 0.9, [place] # (Auto) 0.5, Eos # (Auto) 0.1, Baso # (Auto) 0.0 10/28/20 06:00: Sodium 136, Potassium 4.0, Chloride 110 H, Carbon Dioxide 19 L, Anion Gap 11.0, BUN 45 H, Creatinine 2.70 H, Estimated Creat Clear 23, Estimated GFR 18 L*, Est GFR ( Amer) 22 L, Glucose 84, Calcium 8.6, Total Bilirubin 1.8 H, AST 27 D, ALT 17 D, Alkaline Phosphatase 95, Total Protein 5.7 L, Albumin 2.5 L, Globulin 3.2, Albumin/Globulin Ratio 0.8 L 10/28/20 06:00: Ammonia 89 H I & O for Last 24 hours: Intake & Output 10/25/20 10/26/20 10/27/20 10/28/20 23:59 23:59 23:59 23:59 Intake Total 2483 / 2483 Balance 2483 / 2483 Weight 133 lb 4 oz 138 lb 8 oz - Constitutional thin, chronically ill appearing, cooperative - *Routine HEENT Exam Head: Present: normocephalic Eye: Present: EOMI, PERRL ENT: Present: mucous membranes moist - *Routine Neck Exam Present: supple. Absent: lymphadenopathy - *Routine Respiratory Exam Present: CTA bilaterally - *Routine Cardiovascular Exam Present: RRR - *Routine Abdominal Exam Present: soft, tenderness, distended, organomegaly. Absent: guarding, firm, rigid - *Routine Extremities Exam Absent: cyanosis, clubbing, edema - *Routine Skin Exam Present: lesions. Absent: jaundice - *Routine Neurological Exam Present: alert, oriented X3, moving all extremities, vision grossly intact, hearing grossly intact Assessment and Plan (1) Acute kidney injury Status: Acute Category: Medical Code(s): N17.9 - Acute kidney failure, unspecified (2) Cirrhosis Status: Chronic Qualifiers: Hepatic cirrhosis type: unspecified hepatic cirrhosis Ascites presence: unspecified Qualified Code(s): K74.60 - Unspecified cirrhosis of liver Category: Medical Code(s): K74.60 - Unspecified cirrhosis of liver (3) Anemia Status: Acute Qualifiers: Anemia type: unspecified type Qualified Code(s): D64.9 - Anemia, unspecified Category: Medical Code(s): D64.9 - Anemia, unspecified (4) Hepatic encephalopathy Status: Acute Category: Medical Code(s): K72.90 - Hepatic failure, unspecified without coma (5) Thrombocytopenia Status: Chronic Category: Medical Code(s): D69.6 - Thrombocytopenia, unspecified - Assessment and plan all Dx Assessment and Plan for all problems:: ivf watching renal function will ask for gastro consult
[2020-10-28 20:00] VITALS: BP 122/68; PULSE 116; RESP 18; TEMP 36.8; O2SAT 100
--- NOTE | 2020-10-29 | MR_ITS ---
PROCEDURE: MR ABDOMEN WO CON CLINICAL INDICATION: EVALUATE LIVER, portal vein thrombosis Cirrhosis, abnormal appearance of the liver on 10/27/2020 CT scan suggesting multiple microabscesses COMPARISON: CT CT ABDOMEN PELVIS WO CON from 07/07/[address] ABDOMEN PELVIS WO CON from 10/27/2020 TECHNIQUE: Routine multiplanar multi echo sequences are performed without gadolinium enhancement. MRCP images also performed. FINDINGS: Motion artifact obscures fine detail and limits evaluation of the abdomen. The spleen is enlarged. Previous CT scan demonstrated multiple tiny hypo densities within the liver which has developed since 07/07/2020exam exam with diffuse abdominal ascites. The numerous liver lesions noted on the recent CT scan are not readily apparent. There is a small cystic area in the right hepatic lobe posteriorly at 6 mm. Cirrhotic findings are present. Contrast could not be utilized secondary to patient's limited renal function. Recent CT scan also suggested portal vein thrombosis. Motion artifact obscures fine detail of the portal vein. There is some low signal intensity on the STIR images within the portal vein which may be secondary to portal vein thrombosis however, this is not adequately evaluated secondary to the limitations noted on the exam. There is diffuse abdominal ascites with some heterogeneous signal intensity within the ascites laterally and inferiorly and may be related to peritoneal reflections/fat or adhesions. There is a 14 mm right renal cyst. IMPRESSION: 1. Previously noted miliary pattern of hypodensities within the liver not readily identified in may have been due to multiple microabscesses which have improved. 2. Cirrhosis with splenomegaly and decreased T2 signal within the enlarged portal vein which may correspond to the portal vein thrombosis noted on the recent CT scan. 3. Diffuse ascites. There is heterogeneous diffuse lace-like decreased signal within the ascites possibly related to a peritoneal reflections or adhesions Dictated by: Roshan Lewis MD 10/30/2020 11:25 Roshan Lewis MD in [place] 10/30/2020 11:25
--- NOTE | 2020-10-29 03:26 | PC.NURSE ---
Pt A&O x4. Pt has c/o abd discomfort but has not requested any pain meds. Lungs CTA, on room air. Pt able to ambulate to the bathroom independently. Pt has had several liquid bowel movements this shift. Abd is distended and tender but soft. Pt has 1+ pitting edema to BLE. Pt has been very fatigued this shift. Drsg to R abd wall is CDI. VSS, call light in reach, no concerns at this time.
[2020-10-29 03:55] VITALS: BP 104/59; PULSE 99; RESP 18; TEMP 36.9; O2SAT 99
[2020-10-29 04:51] VITALS: BMI 23.2
[2020-10-29 07:42] VITALS: BP 105/61; PULSE 109; RESP 18; TEMP 37.2; O2SAT 98
[2020-10-29 08:00] VITALS: PULSE 109; RESP 18; O2SAT 98
[2020-10-29 08:49] LABS: Basophils % 0.1 % (0.1-2.0); Eosinophils % 0.2 % (0.1-12.0); Hemoglobin 8.7 g/dL (12.2-16.2); Lymphocytes # 1.2 K/mm3 (0.7-4.5); Lymphocytes % 11.8 % (10-50); Mean Corpuscular Hemoglobin 30.9 pg (27.0-31.2); Mean Corpuscular Volume 99.6 fl (81-99); Mean Platelet Volume 9.6 fl (7.4-10.4); Monocytes # 0.6 K/mm3 (0.1-1.0); Monocytes % 5.9 % (1.7-9.3); Neutrophils # 8.4 K/mm3 (1.8-7.8); Neutrophils % 81.9 % (37.0-80.0); Platelet Count 61 K/mm3 (142-424); Red Blood Count 2.81 M/mm3 (4.20-5.40); White Blood Count 10.2 K/mm3 (4.8-10.8)
[2020-10-29 08:51] LABS: Chloride 111 mmol/L (98-107); Potassium 3.8 mmoL/L (3.5-5.1); Sodium 139 mmol/L (136-145)
[2020-10-29 08:53] LABS: Blood Urea Nitrogen 44 mg/dl (7-17); Creatinine Clearance Estimated 21 mL/min (50-200); Estimated Glomerular Filt Rate 17 ml/min (>60); GFR (African American) 20 ML/MIN (>60)
[2020-10-29 08:54] LABS: Alanine Aminotransferase 21 U/L (12-78); Albumin Level 2.5 g/dl (3.5-5.0); Albumin/Globulin Ratio 0.7 (1.1-1.8); Alkaline Phosphatase 114 U/L (38-126); Anion Gap 13.8 mEq/L (5-15); Aspartate Amino Transferase 39 U/L (14-36); Bilirubin,Total 1.8 mg/dl (0.2-1.3); Calcium 8.8 mg/dl (8.4-10.2); Carbon Dioxide 18 mmol/L (22.0-30.0); Globulin 3.5 g/dL (1.3-3.2); Glucose 95 mg/dl (74-100)
[2020-10-29 08:55] LABS: Ammonia 48 umol/L (9-30)
[2020-10-29 11:06] LABS: Sodium, Urine <20 mmol/L (Not Estab.)
[2020-10-29 13:53] VITALS: BMI 23.3
--- NOTE | 2020-10-29 14:46 | DIET.NUTRFU ---
Pt with severe protein calorie malnutrition rt Cirrhosis with loss of 42% BW past 4mo. BID supplements on diet order, encouragement/cueing at meal times appreciated.
--- NOTE | 2020-10-29 15:10 | P.CONS_ITS ---
Gastroenterology Consult Consult:: Gastroenterology Consultation Date of Service-October 29, 2020 History of Present Illness: Mrs. Minor is a 55-year-old female with decompensated cirrhosis. I am uncertain who has been following her on a long- term basis. She does have intractable ascites and was admitted for paracentesis. The patient also has had some hepatic encephalopathy. She reports no alcohol use. The patient is a poor historian. She reports no abdominal pain or fever. She has had no melena. She has had increased abdominal girth. Labs show increased meld score of 15-16. She has elevated alkaline phosphatase 142 AST 37 and albumin 2.7. Past Medical History: 1. Cirrhosis 2. Cardiomyopathy 3. Chronic renal insufficiency 4. Thyroid disease 5. Prior breast cancer Past Surgical History: 1. Bilateral mastectomy 2. Tonsillectomy Medications: 1. esomeprazole 2. Famotidine 3. Oxycodone 4. Ferrous sulfate ALLERGIES: 1. Haldol 2. Penicillin 3. Fentanyl 4. Sulfa 5. Steroids 6. Depression meds Social History: See patient chart Family History: Patient reports family history of liver disease Review of Systems: See patient chart Physical Examination: Gen.: The patient is a thin and slightly ill-appearing individual slightly lethargic in no acute distress HEENT: Normocephalic/atraumatic extraocular movements are intact anicteric Neck: Supple no lymphadenopathy Chest: Clear to auscultation Cardiovascular: Regular rate and rhythm Abdomen: Palpable ascites present with mildly ballotable liver which is firm, no rebound or guarding, mild splenomegaly Extremities: 1+ edema edema Labs: See chart Radiology: See chart Impression/Plan: 1. Intractable ascites. I do not have records but feels certain that she has had former hepatic evaluation. Most importantly is management of the primary etiology of her liver disease. I do not have prior records. In terms of management, the use of diuretics can reduce renal function even further and lead to azotemia and this can masquerade hepatorenal syndrome. It is very important to restrict sodium and reduce intake to less than 2000 mg of sodium per day. Large volume paracentesis is indicated but will deplete the body of albumin. I would strongly encourage colloid replacement with albumin infusion of at least 6-8 g of albumin per liter removed. Generally the goal of large volume paracentesis is to remove as much fluid as possible without excessive manipulation of the patient. It is very important to avoid ELI inhibitor's and NSAIDs. The patient is not likely to be a candidate for liver transplantation which is ultimately the solution. I am not convinced that the patient has hepatorenal syndrome just yet. We sometimes will use Midodrine as an oral vasopressor suppressor with advanced cirrhosis and this will improve renal perfusion. We start with 5 mg orally 3 times daily. I have communicated briefly with Dr. Eliseo Ruvalcaba. I am only here twice weekly and this is a case that belongs in a tertiary center unless she is deemed hospice care.
--- NOTE | 2020-10-29 15:53 | HMH.ACPN2 ---
Internal Medicine - PN: Subj *Date: 10/29/20 *Time: 18:02 Interval history: looks a little brighter today alert,coherent looks to be re-accumulating ascites will get mri to further delineate liver process started antibiotics for pulmonary infiltrative process has been referred to [facility] hepatology clinic but doubtful that she will be a candidate for transplant will ask for gastro opinion has been following a clinically declining course renal function not improving much with creat 2.90 ammonia has declined to 48 underlying gammopathy of unknown significance, has seen hematology carries a poor prognosis [facility]; 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 Exam Vital signs and Labs for Last 24 Hours: Temp Pulse Resp BP Pulse Ox 99.0 F 109 H 18 105/61 L 98 10/29/20 07:42 10/29/20 08:00 10/29/20 08:00 10/29/20 07:42 10/29/20 08:00 Laboratory Results - last 24 hr 10/27/20 11:53: Serum Osmolality 293 10/27/20 15:37: Urine Sodium <20 10/29/20 08:30: Sodium 139, Potassium 3.8, Chloride 111 H, Carbon Dioxide 18 L, Anion Gap 13.8, BUN 44 H, Creatinine 2.90 H, Estimated Creat Clear 21, Estimated GFR 17 L*, Est GFR ( Amer) 20 L, Glucose 95, Calcium 8.8, Total Bilirubin 1.8 H, AST 39 H D, ALT 21, Alkaline Phosphatase 114, Total Protein 6.0 L, Albumin 2.5 L, Globulin 3.5 H, Albumin/Globulin Ratio 0.7 L 10/29/20 08:30: WBC 10.2 D, RBC 2.81 L, Hgb 8.7 L, Hct 28.0 L, MCV 99.6 H, MCH 30.9, MCHC 31.0 L, RDW 16.0, Plt Count 61 L, MPV 9.6, Neut % (Auto) 81.9 H, Lymph % (Auto) 11.8, [place] % (Auto) 5.9, Eos % (Auto) 0.2, Baso % (Auto) 0.1, Neut # (Auto) 8.4 H, Lymph # (Auto) 1.2, [place] # (Auto) 0.6, Eos # (Auto) 0.0, Baso # (Auto) 0.0 10/29/20 08:30: Ammonia 48 H I & O for Last 24 hours: Intake & Output 10/26/20 10/27/20 10/28/20 10/29/20 23:59 23:59 23:59 23:59 Intake Total 2483 / 2483 Balance 248 / 2483 Weight 133 lb 4 oz 138 lb 8 oz 136 lb 10.986 oz - Constitutional no acute distress, cachectic, chronically ill appearing - *Routine HEENT Exam Head: Present: normocephalic Eye: Absent: conjunctival icterus - *Routine Neck Exam Present: supple. Absent: lymphadenopathy - *Routine Respiratory Exam Present: CTA bilaterally - *Routine Cardiovascular Exam Present: RRR - *Routine Abdominal Exam Present: soft, distended. Absent: rebound, guarding, mass - *Routine Extremities Exam Absent: cyanosis, clubbing, edema - *Routine Skin Exam Absent: cyanosis, jaundice - *Routine Neurological Exam Present: alert, oriented X3, vision grossly intact, hearing grossly intact, normal speech. Absent: altered mental status Assessment and Plan (1) Acute kidney injury Status: Acute Category: Medical Code(s): N17.9 - Acute kidney failure, unspecified (2) Cirrhosis Status: Chronic Qualifiers: Hepatic cirrhosis type: unspecified hepatic cirrhosis Ascites presence: unspecified Qualified Code(s): K74.60 - Unspecified cirrhosis of liver Category: Medical Code(s): K74.60 - Unspecified cirrhosis of liver (3) Anemia Status: Acute Qualifiers: Anemia type: unspecified type Qualified Code(s): D64.9 - Anemia, unspecified Category: Medical Code(s): D64.9 - Anemia, unspecified (4) Hepatic encephalopathy Status: Acute Category: Medical Code(s): K72.90 - Hepatic failure, unspecified without coma (5) Thrombocytopenia Status: Chronic Category: Medical Code(s): D69.6 - Thrombocytopenia, unspecified - Assessment and plan all Dx Assessment and Plan for all problems:: iv rocephin and azith mri liver await gastro reccomendations
[2020-10-29 16:00] VITALS: BP 110/60; PULSE 110; RESP 20; TEMP 36.8; O2SAT 97
--- NOTE | 2020-10-29 17:48 | PC.NURSE ---
Pt has been pleasant and cooperative this shift. A&O X4. Pt has complained of pain in her lower extremities X1 thus far today and has received Oxycodone per MAR with favorable results. Pt is on room air with sats. >90%. Lungs CTA. 1+ pitting edema noted to BLE. Abdomen is large, round, firm, and tender. RT abdominal wall paracentesis dressing is C/D/I. Pt ambulates independently and uses the toilet to void clear, yellow urine without issue. Pt has had 2 episodes of loose, brown stool this shift. Implanted port to the LT chest wall is patent and infusing LR @ 100 ML/HR. VSS. Call light within reach. Will continue to monitor.
[2020-10-29 20:00] VITALS: BP 102/44; PULSE 90; RESP 17; TEMP 36.6; O2SAT 100
--- NOTE | 2020-10-29 20:00 | PC.NURSE ---
Pt requested that this RN call Dr. Ruvalcaba because she would like to go home. Explained that Dr. Mullins was correctional counselor and she stated she would wait until the morning to speak with Dr. Ruvalcaba. Will continue to monitor for any acute changes.
[2020-10-30 04:00] VITALS: BP 92/64; PULSE 86; RESP 17; TEMP 36.7; O2SAT 93
[2020-10-30 04:41] VITALS: RESP 18
[2020-10-30 05:00] VITALS: BMI 23.3
[2020-10-30 07:19] LABS: Chloride 110 mmol/L (98-107); Potassium 3.6 mmoL/L (3.5-5.1); Sodium 136 mmol/L (136-145)
[2020-10-30 07:20] LABS: Basophils % 0.1 % (0.1-2.0); Eosinophils # 0.1 K/mm3 (0.0-0.4); Eosinophils % 0.7 % (0.1-12.0); Hematocrit 27.1 % (37.0-47.0); Hemoglobin 8.5 g/dL (12.2-16.2); Lymphocytes # 1.1 K/mm3 (0.7-4.5); Lymphocytes % 12.8 % (10-50); Mean Corpuscular HGB Conc 31.2 g/dL (31.8-35.4); Mean Corpuscular Hemoglobin 30.8 pg (27.0-31.2); Mean Corpuscular Volume 98.6 fl (81-99); Mean Platelet Volume 9.1 fl (7.4-10.4); Monocytes # 0.7 K/mm3 (0.1-1.0); Neutrophils # 6.6 K/mm3 (1.8-7.8); Neutrophils % 78.3 % (37.0-80.0); Platelet Count 64 K/mm3 (142-424); Red Blood Count 2.75 M/mm3 (4.20-5.40); Red Cell Distribution Width 16.1 % (11.5-17.5); White Blood Count 8.4 K/mm3 (4.8-10.8)
[2020-10-30 07:21] LABS: Ammonia 56 umol/L (9-30)
[2020-10-30 07:22] LABS: Alanine Aminotransferase 25 U/L (12-78); Albumin Level 2.4 g/dl (3.5-5.0); Albumin/Globulin Ratio 0.7 (1.1-1.8); Alkaline Phosphatase 108 U/L (38-126); Anion Gap 13.6 mEq/L (5-15); Aspartate Amino Transferase 35 U/L (14-36); Bilirubin,Total 1.5 mg/dl (0.2-1.3); Blood Urea Nitrogen 45 mg/dl (7-17); Carbon Dioxide 16 mmol/L (22.0-30.0); Creatinine Clearance Estimated 20 mL/min (50-200); Estimated Glomerular Filt Rate 16 ml/min (>60); GFR (African American) 19 ML/MIN (>60); Globulin 3.5 g/dL (1.3-3.2); Total Protein,Serum 5.9 g/dl (6.3-8.2)
[2020-10-30 07:23] LABS: Calcium 8.5 mg/dl (8.4-10.2); Glucose 99 mg/dl (74-100)
[2020-10-30 07:26] LABS: Prothrombin Time 20.9 seconds (10.1-12.5)
[2020-10-30 07:27] LABS: INR 1.85 (0.9-1.1)
[2020-10-30 07:34] VITALS: BP 92/47; PULSE 82; RESP 20; TEMP 36.6; O2SAT 100
[2020-10-30 08:00] VITALS: PULSE 82; RESP 20; O2SAT 100
--- NOTE | 2020-10-30 08:22 | HMH.DCSUM ---
General - General Admission date:: 10/27/20 Discharge date: 10/30/20 HPI HPI: this pt was seen in the ed after having paracentesis and noted to have elvated creatine -donnellnt 55-year-old female with history of liver cirrhosis, diabetes, skin cancer presenting with abnormal labs. Patient was at her routine paracentesis this morning where she had multiple liters of ascitic fluid drained from her peritoneum. Lab draw there demonstrated creatinine greater than 3 which apparently is new for this patient. She was redirected to the emergency department. She states she is had some generalized malaise over the past several days without specific vomiting, diarrhea/constipation, abdominal pain, fever/chills, neurologic deficits, headache, chest pain, shortness of breath. phyllis is a 55-year-old female presenting with abnormal lab draw. Reportedly, she had a creatinine of greater than 3 at her lab draw this morning during her paracentesis. She also endorses some generalized malaise which very much could be contributed to her renal insufficiency. Labs will be repeated here in the emergency department with urine studies. Creatinine 3 on lab work. Baseline between 1.5 and 1.8 on review. There does appear to be prerenal component and again this could be progressive hepatorenal syndrome. Plasma expansion will be initiated with crystalloid fluids at 100 cc/h. Diabetic diet ordered. Reached out to on-call hospitalist, Dr. Collado, to discuss admission. After careful discussion we agreed patient should be admitted for further treatment and evaluation. Shared plan with patient and family at bedside. All parties are in agreement. Patient continues to be hemodynamically stable and will be admitted to the hospital. pt admitted for eval and treatment Hospital Course Hospital Course: pt with hx of known liver dis with paracentesis did about every 2 weeks - she had 6l fluid removed and felt ill and was seen in the ed and noted to have brandon and concern for hepatorenal syndrome - pt was given ivf and albumin and has slowly improved but has continued lab abn - she was seen by gi-mio of Present Illness: Mrs. Minor is a 55-year-old female with decompensated cirrhosis. I am uncertain who has been following her on a long-term basis. She does have intractable ascites and was admitted for paracentesis. The patient also has had some hepatic encephalopathy. She reports no alcohol use. The patient is a poor historian. She reports no abdominal pain or fever. She has had no melena. She has had increased abdominal girth. Labs show increased meld score of 15-16. She has elevated alkaline phosphatase 142 AST 37 and albumin 2.7. Past Medical History: 1. Cirrhosis 2. Cardiomyopathy 3. Chronic renal insufficiency 4. Thyroid disease 5. Prior breast cancer Past Surgical History: 1. Bilateral mastectomy 2. Tonsillectomy Medications: 1. esomeprazole 2. Famotidine 3. Oxycodone 4. Ferrous sulfatepression/Plan: 1. Intractable ascites. I do not have records but feels certain that she has had former hepatic evaluation. Most importantly is management of the primary etiology of her liver disease. I do not have prior records. In terms of management, the use of diuretics can reduce renal function even further and lead to azotemia and this can masquerade hepatorenal syndrome. It is very important to restrict sodium and reduce intake to less than 2000 mg of sodium per day. Large volume paracentesis is indicated but will deplete the body of albumin. I would strongly encourage colloid replacement with albumin infusion of at least 6-8 g of albumin per liter removed. Generally the goal of large volume paracentesis is to remove as much fluid as possible without excessive manipulation of the patient. It is very important to avoid ELI inhibitor's and NSAIDs. The patient is not likely to be a candidate for liver transplantation which is ultimately the solution. I am not
[2020-10-30 08:57] LABS: Osmolality, Urine 455 mOsmol/kg (.)
== END 2020-10-30 10:55 | disposition home or self-care (01) | DRG 682 ==
LOC: ER 13:39 → 2ND 14:18
PROVIDERS: Admitting Provider Emergency Medicine; Emergency Provider Emergency Medicine; PCP Family Medicine; Visit Provider Family Medicine
DX: N17.9 Acute kidney failure, unspecified (principal); J18.9 Pneumonia, unspecified organism; K55.069 Acute infarction of intestine, part and extent unspecified; I42.9 Cardiomyopathy, unspecified; I13.0 Hypertensive heart and chronic kidney disease with heart failure and stage 1 through stage 4 chronic kidney disease, or unspecified chronic kidney disease; K74.60 Unspecified cirrhosis of liver; F41.9 Anxiety disorder, unspecified; Z85.828 Personal history of other malignant neoplasm of skin; I50.9 Heart failure, unspecified; E78.5 Hyperlipidemia, unspecified; F17.210 Nicotine dependence, cigarettes, uncomplicated; D69.6 Thrombocytopenia, unspecified; K72.90 Hepatic failure, unspecified without coma; Z85.3 Personal history of malignant neoplasm of breast; E11.22 Type 2 diabetes mellitus with diabetic chronic kidney disease; N18.9 Chronic kidney disease, unspecified; M19.90 Unspecified osteoarthritis, unspecified site; Z88.2 Allergy status to sulfonamides; Z88.8 Allergy status to other drugs, medicaments and biological substances; D63.1 Anemia in chronic kidney disease; K21.9 Gastro-esophageal reflux disease without esophagitis
CPT/HCPCS: 36415; 49083; 71046; 74176; 74181; 76376; 80048; 80053; 80076; 81001; 82140; 82565; 82962; 83930; 83935; 84300; 84436; 84443; 85025; 85610; 85730; 87581; 87633; 87798; 96365; 96367; 96375; 99284; J0456; J2405; P9047

== ENCOUNTER 2020-11-01 13:37 | Outpatient (CLI) | payer MEDICAID, SELFPAY ==
[2020-11-01 13:45] VITALS: BMI 25.7
[2020-11-01 14:30] LABS: Alanine Aminotransferase 31 U/L (12-78); Albumin Level 2.8 g/dl (3.5-5.0); Albumin/Globulin Ratio 0.7 (1.1-1.8); Alkaline Phosphatase 131 U/L (38-126); Anion Gap 13.7 mEq/L (5-15); Aspartate Amino Transferase 45 U/L (14-36); Bilirubin,Total 1.5 mg/dl (0.2-1.3); Blood Urea Nitrogen 49 mg/dl (7-17); Calcium 8.9 mg/dl (8.4-10.2); Carbon Dioxide 16 mmol/L (22.0-30.0); Chloride 108 mmol/L (98-107); Creatinine Clearance Estimated 19 mL/min (50-200); Estimated Glomerular Filt Rate 13 ml/min (>60); GFR (African American) 16 ML/MIN (>60); Globulin 3.9 g/dL (1.3-3.2); Glucose 96 mg/dl (74-100); Potassium 3.7 mmoL/L (3.5-5.1); Sodium 134 mmol/L (136-145); Total Protein,Serum 6.7 g/dl (6.3-8.2)
== END 2020-11-01 13:55 | disposition home or self-care (01) ==
LOC: LAB 13:39
PROVIDERS: PCP Family Medicine; Visit Provider Family Medicine
DX: R18.8 Other ascites (principal); Z98.890 Other specified postprocedural states
CPT/HCPCS: 80053; J1642

== ENCOUNTER 2020-11-02 15:24 | Outpatient (CLI) | payer MEDICAID, SELFPAY ==
[2020-11-02 15:15] VITALS: BP 91/54; PULSE 81; RESP 18; TEMP 36.2; O2SAT 98
[2020-11-02 15:40] VITALS: BP 117/92; PULSE 80; RESP 18
[2020-11-02 16:00] VITALS: BP 96/58; PULSE 81; RESP 18
[2020-11-02 16:25] VITALS: BP 101/54; PULSE 83; RESP 18
== END 2020-11-02 16:25 | disposition home or self-care (01) ==
LOC: INF 15:24
PROVIDERS: PCP Family Medicine; Visit Provider Family Medicine
DX: N17.9 Acute kidney failure, unspecified (principal)
CPT/HCPCS: 96360; J1642

== ENCOUNTER 2020-11-08 10:35 | Outpatient (CLI) | payer MEDICAID, SELFPAY ==
[2020-11-08 11:15] LABS: Basophils % 0.1 % (0.1-2.0); Eosinophils % 0.6 % (0.1-12.0); Hematocrit 28.2 % (37.0-47.0); Hemoglobin 9.3 g/dL (12.2-16.2); Lymphocytes # 0.9 K/mm3 (0.7-4.5); Lymphocytes % 17.4 % (10-50); Mean Corpuscular Hemoglobin 31.6 pg (27.0-31.2); Mean Corpuscular Volume 95.9 fl (81-99); Mean Platelet Volume 8.5 fl (7.4-10.4); Monocytes # 0.4 K/mm3 (0.1-1.0); Monocytes % 8.2 % (1.7-9.3); Neutrophils # 3.7 K/mm3 (1.8-7.8); Neutrophils % 73.7 % (37.0-80.0); Platelet Count 86 K/mm3 (142-424); Red Blood Count 2.94 M/mm3 (4.20-5.40); Red Cell Distribution Width 15.9 % (11.5-17.5)
[2020-11-08 11:39] LABS: Chloride 105 mmol/L (98-107); Potassium 3.7 mmoL/L (3.5-5.1); Sodium 130 mmol/L (136-145)
[2020-11-08 11:41] LABS: Ammonia 58 umol/L (9-30)
[2020-11-08 11:42] LABS: Alanine Aminotransferase 33 U/L (12-78); Albumin Level 2.6 g/dl (3.5-5.0); Albumin/Globulin Ratio 0.7 (1.1-1.8); Alkaline Phosphatase 131 U/L (38-126); Anion Gap 11.7 mEq/L (5-15); Aspartate Amino Transferase 45 U/L (14-36); Bilirubin,Total 1.7 mg/dl (0.2-1.3); Blood Urea Nitrogen 51 mg/dl (7-17); Calcium 8.6 mg/dl (8.4-10.2); Carbon Dioxide 17 mmol/L (22.0-30.0); Estimated Glomerular Filt Rate 14 ml/min (>60); GFR (African American) 17 ML/MIN (>60); Glucose 109 mg/dl (74-100); Total Protein,Serum 6.6 g/dl (6.3-8.2)
[2020-11-11 12:44] LABS: Prealbumin 4 mg/dL (10-36)
== END 2020-11-08 10:51 | disposition home or self-care (01) ==
LOC: INF 10:35
PROVIDERS: PCP Family Medicine; Visit Provider Family Medicine
DX: K74.60 Unspecified cirrhosis of liver (principal)
CPT/HCPCS: 80053; 82140; 84134; 85025; J1642